=== PATIENT | female | born 1970 | race Caucasian/White ===

== ENCOUNTER → 2018-06-26 | Outpatient (CLI) | payer MEDICAID ==
--- NOTE | 2018-06-26 11:19 | XR ---
EXAMINATION TYPE: XR humerus LT DATE OF EXAM: 06/26/2018 COMPARISON: None HISTORY: Foreign body left upper extremity TECHNIQUE: 2 view left humerus FINDINGS: No acute osseous abnormality is evident. Joint spaces appear preserved. On the AP projection there is a metallic figure 8 device overlying the acromioclavicular junction. Th is appears to be more typical for a bra strap. This appears to be away from the suspected site within the mid diaphyseal region of the humerus for the suspected foreign body. The osseous structures appear intact IMPRESSION: 1. Suspicious metallic foreign body not identified in the mid posterior arm reported bruising site. 2. Normal left humerus.
== END ==
LOC: RADXRMAIN 10:30
PROVIDERS: ATTEND Nurse Practitioner Family
DX: S40.852A Superficial foreign body of left upper arm, initial encounter (principal)

== ENCOUNTER → 2018-08-27 | Outpatient (CLI) | payer MEDICAID ==
--- NOTE | 2018-08-28 11:14 | MM ---
Reason for exam: screening (asymptomatic). Last mammogram was performed 1 year and 1 month ago. History: Family history of breast cancer in paternal grandmother at age 82. Benign right mammotome panel of the right breast, June 21, 2011. Physical Findings: A clinical breast exam by your physician is recommended on an annual basis and results should be correlated with mammographic findings. MG 3D Screening Mammo W/Cad Bilateral CC and MLO view(s) were taken. Prior study comparison: July 16, 2017, bilateral MG 3d screening mammo w/cad. July 08, 2016, bilateral MG 3d diag mammo w/cad ROBBIN. The breast tissue is heterogeneously dense. This may lower the sensitivity of mammography. No significant changes when compared with prior studies. ASSESSMENT: Benign, BI-RAD 2 RECOMMENDATION: Routine screening mammogram of both breasts in 1 year.
== END | disposition home or self-care (01) ==
LOC: RADMAMWWP 13:43
PROVIDERS: ATTEND Obstetrics & Gynecology
DX: Z12.31 Encounter for screening mammogram for malignant neoplasm of breast (principal)
CPT/HCPCS: 77063; 77067

== ENCOUNTER 2018-08-30 20:46 | Emergency (ER) | payer MEDICAID, OTHER ==
[2018-08-30 20:54] VITALS: BP 145/94; PULSE 93; RESP 18; TEMP 97.6
--- NOTE | 2018-08-30 21:13 | ED ---
Upper Extremity HPI - General Chief Complaint: Extremity Injury, Upper Stated Complaint: Shoulder injury Time Seen by Provider: 08/30/18 20:49 Source: patient, RN notes reviewed, old records reviewed Mode of arrival: ambulatory Limitations: no limitations - History of Present Illness Initial Comments: Patient is a 47-year-old female who presents emergency department today with chief complaint of left shoulder and elbow pain. Patient reports that symptoms started yesterday after lifting a Patient at work. Patient states that she's had no fevers or chills, denies any chest pain shortness breath. She denies any peripheral paresthesias. Patient reports she's had history of left shoulder chronic issues after she had a work injury 8 years ago. She subsequently develop frozen shoulder syndrome at that time. She is concerned that that may occur at this time. She denies any significant decreased range of motion. She complains of pain around her elbow as well. Patient reports she took 400 mg of ibuprofen and slept. Patient states that after taking the Cipro and she still continued to have some pain. - Related Data Home Medications Medication Instructions Recorded Confirmed Albuterol Inhaler [Ventolin Hfa 2 puff INHALATION RT-Q4H PRN 07/20/14 12/17/15 Inhaler] Fenofibrate Nanocrystallized 145 mg PO DAILY 07/20/14 12/17/15 [Fenofibrate] Hydrochlorothiazide [Hydrodiuril] 50 mg PO DAILY 07/20/14 12/17/15 Ipratropium-Albuterol Nebulize 1 inhalation PO RT-Q4H PRN 07/20/14 12/17/15 [Duoneb 0.5 mg-3 mg/3 ml Soln] Montelukast [Singulair] 10 mg PO DAILY 07/20/14 12/17/15 Simvastatin [Zocor] 10 mg PO DAILY 07/20/14 12/17/15 sitaGLIPtin PHOSPHATE [Januvia] 100 mg PO DAILY 07/20/14 12/17/15 Digoxin [Lanoxin] 125 mcg PO DAILY 02/05/15 12/17/15 metFORMIN HCL [Glucophage] 1,000 mg PO BID 02/05/15 12/17/15 Aspirin EC [Ecotrin Low Dose] 162 mg PO HS 02/10/15 12/17/15 Docusate [Colace] 200 mg PO DAILY 12/17/15 12/17/15 Insulin Glargine,Hum.rec.anlog 25 units SQ HS 12/17/15 12/17/15 [Toujeo Solostar] Insulin Glulisine [Apidra Solostar] 8 unit SQ QID 12/17/15 12/17/15 Previous Rx's Medication Instructions Recorded Levalbuterol Nebulized (Conc) 1.25 mg INHALATION RT-QID #120 ml 02/11/15 [Xopenex Nebulized (Conc)] HYDROcodone/APAP 5-325MG [Guy 1 each PO Q6HR PRN #10 tab 12/17/15 5-325] Ondansetron Odt [Zofran ODT] 4 mg PO Q8HR PRN #10 tab 12/17/15 Cyclobenzaprine [Flexeril] 10 mg PO TID #12 tab 08/30/18 Ibuprofen [Motrin] 600 mg PO Q8HR PRN #20 tab 08/30/18 Allergies Allergy/AdvReac Type Severity Reaction Status Date / Time chlorpheniramine maleate Allergy Anaphylaxis Verified 08/30/18 20:54 [From Deconamine] iodine Allergy Anaphylaxis Verified 08/30/18 20:54 propranolol HCl Allergy Anaphylaxis Verified 08/30/18 20:54 [From Inderal LA] Review of Systems ROS Statement: Those systems with pertinent positive or pertinent negative responses have been documented in the HPI. ROS Other: All systems not noted in ROS Statement are negative. Past Medical History Past Medical History: Asthma, Diabetes Mellitus, Hyperlipidemia, Supraventricular Tachycardia (SVT) Additional Past Medical History / Comment(s): glaucoma, migraineas, Ovarian cysts (ruptured hemorrhagic cyst), endometriosis History of Any Multi-Drug Resistant Organisms: None Reported Past Surgical History: Adenoidectomy, Back Surgery, Cholecystectomy, Tonsillectomy, Uterine Ablation Additional Past Surgical History / Comment(s): d&c, left hip, bilateral knees, open laparotomy. Past Anesthesia/Blood Transfusion Reactions: Postoperative Nausea & Vomiting ( PONV) Past Psychological History: No Psychological Hx Reported Smoking Status: Never smoker Past Alcohol Use History: Rare Past Drug Use History: None Reported - Past Family History Mother Family Medical History: COPD, Diabetes Mellitus, Hypertension, Renal Disease Additional Family Medical History / Comment(s): chf, open heart Father Additional Family Medical History / Comment(s): renal cell carcinoma General Exam - General Exam Comments Initial Comments: 47-year-old female. Alert and oriented. Patient appears in no acute distress. Limitations: no limitations General appearance: alert, in no apparent distress Head exam: Present: atraumatic, normocephalic, normal inspection Eye exam: Present: normal appearance, PERRL, EOMI. Absent: scleral icterus, conjunctival injection, periorbital swelling ENT exam: Present: normal exam, mucous membranes moist Neck exam: Present: normal inspection Respiratory exam: Present: normal lung sounds bilaterally. Absent: respiratory distress, wheezes, rales, rhonchi, stridor Cardiovascular Exam: Present: regular rate, normal rhythm, normal heart sounds. Absent: systolic murmur, diastolic murmur, rubs, gallop, clicks Left Shoulder Exam: Present: normal inspection, full ROM, tenderness (Tenderness over the left trapezius muscle and left paraspinal cervical muscles.) Upper Arm exam: Present: normal inspection, full ROM Elbow exam: Present: normal inspection, full ROM, tenderness (Patient has tenderness over the lateral insertion of the biceps with flexion.) Forearm Wrist exam: Present: normal inspection, full ROM Hand Wrist exam: Present: normal inspection, full ROM Neuro motor exam: Present: wrist extension intact, thumb opposition intact, thumb IP flexion intact, thumb adduction intact, fingers 2-5 abduction intact Vascular: Present: normal capillary refill Back exam: Present: normal inspection Course Vital Signs 08/30/18 20:50 Temperature 97.6 F Pulse Rate 93 Respiratory 18 Rate Blood Pressure 145/94 O2 Sat by Pulse 95 Oximetry Medical Decision Making - Medical Decision Making 47-year-old female with left elbow and shoulder pain after pulling a Patient up at work. Patient reports she was holding a heavy Patient while they were trying to reposition him in bed. At the same Patient does have full range of motion of the shoulder full range motion of the elbow. She is tenderness to palpation with flexion of the elbow over the lateral biceps insertion tendon. Patient also tenderness over the trapezius. She was given IM Toradol and Norflex. Discussed at this time x-rays reviewed and negative for any acute osseous have a mallet. Says likely suffering from tendinitis as well as cervical muscle and trapezius muscle spasms due to tension. Patient was advised to continue to try medication, short prescription for muscle relaxers for the neck pain. Discussed and will not put the Patient a sling at this time as it could simply develop frozen shoulder syndrome. Discussed that she should return to emergency department if any alarming signs or symptoms occur. Disposition Clinical Impression: Shoulder pain Disposition: HOME SELF-CARE Condition: Good Instructions: Tendinitis (ED), Muscle Spasm (ED) Additional Instructions: Patient advised to follow-up with data specialist. Rest, ice the elbow and shoulder. Also warm compresses may help over the neck and back. Patient should take the medication as prescribed. Return to the emergency department if any alarming signs or symptoms occur. Prescriptions: Cyclobenzaprine [Flexeril] 10 mg PO TID #12 tab Ibuprofen [Motrin] 600 mg PO Q8HR PRN #20 tab PRN Reason: Pain Is patient prescribed a controlled substance at d/c from ED?: No Referrals: Peter Gallego MD [Primary Care Provider] - 1-2 days Chente Geronimo DO [Doctor of Osteopathic Medicine] - 1-2 days Time of Disposition: 21:52
[2018-08-30] MEDS ORDERED: KETOROLAC 60 MG/2 ML VIAL IM STA (21:17)
[2018-08-30] MEDS ORDERED: ORPHENADRINE 30 MG/ML 2 ML VIAL IM STA (21:17)
--- NOTE | 2018-08-30 21:41 | XR ---
EXAMINATION TYPE: XR shoulder complete LT DATE OF EXAM: 08/30/2018 CLINICAL HISTORY: Pain after lifting injury yesterday. TECHNIQUE: Three views of the left shoulder are obtained. COMPARISON: Left humerus x-ray June 26, 2018. FINDINGS: There is no acute fracture/dislocation evident in the left shoulder. Moderate narrowing of the right ventricular joint is redemonstrated. Glenohumeral joint is maintained. The visualized rib s are intact and unremarkable. IMPRESSION: There is no acute fracture or dislocation in the left shoulder.
--- NOTE | 2018-08-30 21:42 | XR ---
EXAMINATION TYPE: XR elbow complete LT DATE OF EXAM: 08/30/2018 CLINICAL HISTORY: Pain after lifting injury yesterday. TECHNIQUE: Frontal, lateral and oblique images of the left elbow are obtained. COMPARISON: Left humerus x-ray June 26, 2018 FINDINGS: There is no acute fracture/dislocation evident in the left elbow. No abnormal fat pad sig ns are seen. The overlying soft tissue appears unremarkable. IMPRESSION: There is no acute fracture or dislocation in the left elbow.
== END 2018-08-30 22:20 | disposition home or self-care (01) ==
LOC: EC 20:46
DX: M75.22 Bicipital tendinitis, left shoulder (principal); M62.838 Other muscle spasm; J45.909 Unspecified asthma, uncomplicated; E11.9 Type 2 diabetes mellitus without complications; E78.5 Hyperlipidemia, unspecified; Z79.82 Long term (current) use of aspirin; Z79.4 Long term (current) use of insulin; Z79.899 Other long term (current) drug therapy; Z88.8 Allergy status to other drugs, medicaments and biological substances; Z91.048 Other nonmedicinal substance allergy status
CPT/HCPCS: 99284; 96372 ×2; 73030; 73080; J2360; J1885

== ENCOUNTER → 2018-09-02 | Outpatient (CLI) | payer OTHER ==
--- NOTE | 2018-09-02 14:25 | MR ---
EXAMINATION TYPE: MR shoulder LT wo con DATE OF EXAM: 09/02/2018 COMPARISON: Radiograph 08/30/2018 HISTORY: 47-year-old female Sprain of shoulder joint, left shoulder pain TECHNIQUE: Multiplanar, multisequence imaging of the left shoulder is performed without contrast. FINDINGS: Intermediate signal within the intracapsular portion of the long head biceps tendon suggests tendinos is. The extracapsular portion remains appropriately situated along the bicipital groove. The subscapularis tendon is intact. The supraspinatus and infraspinatus tendons are intact. Mild thickening of the subacromial/subdeltoid bursa. No atrophy of the rotator cuff musculature. There is moderate degenerative joint space narrowing and marginal spurring at the acromioclavicular j oint with mild capsular edema and contact onto the underlying myotendinous junction of the supraspina tus. The glenohumeral joint is intact with a small effusion present in the superior subscapularis recess. No discrete labral tear given nonarthrographic technique and no para labral cyst. No Hill-Sachs deformity or os acromiale. Patchy red marrow is present. No suspicious bone marrow replacement. IMPRESSION: 1. Intracapsular long head biceps tendinosis. 2. Mild thickening of the subacromial/subdeltoid bursa could represent a mild bursitis. 3. Moderate AC joint OA with inferior spurring just contacting the underlying cuff. Correlate for any symptoms of subacromial impingement. 4. No rotator cuff tear.
== END | disposition home or self-care (01) ==
LOC: RADMRIMAIN 10:53
PROVIDERS: ATTEND Emergency Medicine
DX: M19.012 Primary osteoarthritis, left shoulder (principal); M67.814 Other specified disorders of tendon, left shoulder

== ENCOUNTER → 2019-01-04 | Outpatient (CLI) | payer OTHER ==
[2019-01-04 13:51] LABS: Basophils # (A) 0.1 k/uL (0-0.2); Basophils % (A) 1 %; Eosinophils # (A) 0.2 k/uL (0-0.7); Eosinophils % (A) 2 %; HCT 41.6 % (34.0-46.0); HGB 13.7 gm/dL (11.4-16.0); Lymphocytes # (A) 2.3 k/uL (1.0-4.8); Lymphocytes % (A) 23 %; MCH 27.6 pg (25.0-35.0); MCHC 32.8 g/dL (31.0-37.0); Mean Platelet Volume 6.6; Monocytes # (A) 0.5 k/uL (0-1.0); Monocytes % (A) 5 %; Neutrophils # (A) 6.7 k/uL (1.3-7.7); Neutrophils % (A) 67 %; Platelet Count 400 k/uL (150-450); RBC 4.95 m/uL (3.80-5.40); RDW 13.9 % (11.5-15.5)
== END | disposition home or self-care (01) ==
LOC: LABPAT 12:57
PROVIDERS: ATTEND Orthopaedic Surgery
DX: Z01.812 Encounter for preprocedural laboratory examination (principal); M75.42 Impingement syndrome of left shoulder
CPT/HCPCS: 36415; 80051; 85025

== ENCOUNTER → 2019-04-06 | Outpatient (CLI) | payer MEDICAID ==
[2019-04-06 09:37] LABS: Basophils # (A) 0.1 k/uL (0-0.2); Basophils % (A) 1 %; Eosinophils # (A) 0.4 k/uL (0-0.7); Eosinophils % (A) 3 %; Lymphocytes # (A) 3.5 k/uL (1.0-4.8); Lymphocytes % (A) 28 %; MCH 27.5 pg (25.0-35.0); MCHC 32.6 g/dL (31.0-37.0); MCV 84.4 fL (80.0-100.0); Mean Platelet Volume 6.3; Monocytes # (A) 0.8 k/uL (0-1.0); Monocytes % (A) 7 %; Neutrophils # (A) 7.5 k/uL (1.3-7.7); Neutrophils % (A) 60 %; Platelet Count 424 k/uL (150-450); RBC 4.74 m/uL (3.80-5.40); RDW 13.8 % (11.5-15.5); WBC 12.5 k/uL (3.8-10.6)
[2019-04-06 09:47] LABS: Potassium 3.9 mmol/L (3.5-5.1)
== END | disposition home or self-care (01) ==
LOC: LABPAT 07:53
PROVIDERS: ATTEND Orthopaedic Surgery
DX: Z01.812 Encounter for preprocedural laboratory examination (principal); M75.42 Impingement syndrome of left shoulder
CPT/HCPCS: 36415; 80051; 85025

== ENCOUNTER 2019-04-09 07:38 | Day surgery (SDC) | payer MEDICAID, OTHER ==
[2019-04-08 08:30] VITALS: BMI 33.8
--- NOTE | 2019-04-08 09:13 | HP ---
HISTORY AND PHYSICAL CHIEF COMPLAINT: Left shoulder pain. 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 She is having a difficult time with overhead activity and at night. She has tried medications, a previous injection, and therapy with only partial temporary relief. She notes the pain does limit her activities. PAST MEDICAL HISTORY: Significant for diabetes, reflux disease, irritable bowel syndrome, asthma, depression, hypercholesterolemia. PAST SURGICAL HISTORY: Significant for previous left hip surgery x2, left knee surgery, right knee surgery, right heel cord surgery, lumbar fusion with bone grafting, exploratory laparotomy, cholecystectomy and breast biopsy. CURRENT MEDICATIONS: 1. Digoxin. 2. Metformin. 3. Simvastatin. 4. Singulair. 5. Insulin. 6. Aspirin. 7. Hydrochlorothiazide. 8. Januvia. ALLERGIES: She has allergies to INDERAL, IODINE. FAMILY HISTORY: Significant for cancer and heart disease. SOCIAL HISTORY: Negative for current tobacco or alcohol use. REVIEW OF SYSTEMS: Sixteen point review of systems otherwise reviewed and is noncontributory. PHYSICAL EXAMINATION: On examination, the patient is approximately 5 feet 7 inches, 215 pounds of endomorphic habitus. HEENT exam is nonfocal. Neck is supple. On examination of her left shoulder, she is tender about the anterior subacromial space in the acromioclavicular joint. She has moderate subacromial crepitus. Active range of motion forward elevation 155 degrees, external rotation of the arm side 50 degrees, internal rotation to T12. Motor strength is 5 minus over 5 for external rotation with the arm at the side, 5 minus over 5 for abduction. Impingement test, Neer test are positive. Cross- body adduction is positive. Her distal neurovascular exam appears intact in the left upper extremity. Previous x-rays of the left shoulder show maintained humeral head to acromial distance. Previous MRI showed no definite full-thickness rotator cuff tear. IMPRESSION: 1. Left shoulder impingement. 2. Left acromioclavicular joint synovitis. RECOMMENDATIONS: I talked to the patient at length regarding her condition and treatment options. At this point, she remains quite symptomatic despite adequate conservative measures. After thorough discussion, she opts to proceed with surgery. We will plan to proceed with arthroscopic evaluation with probable subacromial decompression and distal clavicular resection and possible rotator cuff debridement. Risks and benefits were discussed at length in layman's terms. We will likely perform that as an outpatient procedure. MMODL / IJN: [id number] /
[~2019-04-09 07:38] MED LIST: DEXAMETHASONE SOD PHOSPHATE 10 MG/ML 1 ML VIAL IV ONE; KETOROLAC 30 MG/ML 1 ML VIAL IVP SCH; LACTATED RINGERS 1,000 ML IV SCH; LIDOCAINE 1% 20 ML VIAL (10MG/ML) FOR IV START INTRADERMA PRN; MORPHINE SULFATE 2 MG/ML SYRINGE IV PRN; ONDANSETRON 4 MG/2 ML VIAL IVP ONE; ONDANSETRON 4 MG/2 ML VIAL IVP PRN; SCOPOLAMINE 1.5MG/72HR PATCH TRANSDERM ONE
[2019-04-09 08:36] LABS: Glucose,Whole Blood 143 mg/dL (75-99)
[2019-04-09] MEDS ORDERED: MIDAZOLAM (PF) 2 MG/2 ML VIAL IVP ONE (08:56)
--- NOTE | 2019-04-09 09:10 | P.ANPRN ---
Procedure Note - Anesthesia - Nerve Block Performed Left Interscalene Single Date of Procedure: 04/09/19 Procedure Start Time: 08:55 Procedure Stop Time: 09:00 Location of Patient Procedure: PreOp Indication: Acute Post-Operative Pain, Analgesia, Requested by physician Sedation Type: Sedate with meaningful contact maintained Preparation: Sterile Prep Position: Supine Catheter: None Needle Types: Pajunk Needle Gauge: 21 Technique: Ultrasound Injectate: 0.5% Ropivacaine (see comment for volume) (20cc) Blood Aspirated: No Pain Paresthesia on Injection Noted: No Resistance on Injection: Normal Events: Uneventful and Well Tolerated
[2019-04-09] MEDS ORDERED: LIDOCAINE 1% INJ 10MG/ML (20 ML MDV) ONE (09:42)
[2019-04-09] MEDS ORDERED: MIDAZOLAM 2 MG/2 ML VIAL ONE (09:42)
[2019-04-09] MEDS ORDERED: PHENYLEPHRINE-0.9% NACL SYG 1 MG/10 ML SYRINGE ONE (09:42)
[2019-04-09] MEDS ORDERED: ROPIVACAINE 5 MG/ML 30 ML VIAL ONE (09:42)
[2019-04-09] MEDS ORDERED: PROPOFOL 10 MG/ML 20 ML VIAL IV ONE (09:42)
[2019-04-09] MEDS ORDERED: SUCCINYLCHOLINE CHLORIDE 100 MG/5 ML SYR IV ONE (09:42)
[2019-04-09] MEDS ORDERED: fentaNYL (PF) 50 MCG/ML 2 ML AMP ONE (09:42)
[2019-04-09] MEDS ORDERED: EPINEPHrine (PF) 1 ML in SODIUM CHLORIDE 0.9% IRRIGATIO 3,000 ML IRRIGATION ONE ×8 (10:25)
[2019-04-09] MEDS ORDERED: LACTATED RINGERS 1,000 ML IV ONE (11:05)
--- NOTE | 2019-04-09 11:11 | P.OP ---
Date of Procedure: 04/09/19 Preoperative Diagnosis: Left shoulder impingement/rotator cuff tendinitis/acromioclavicular joint synovitis Postoperative Diagnosis: Same Procedure(s) Performed: Left shoulder arthroscopic subacromial decompression/distal clavicular resection/bursectomy Anesthesia: allison SHIPLEY Surgeon: Pierre Kraft Instrument Specialist #1: Kurt North Estimated Blood Loss (ml): 10 Pathology: none sent Condition: stable Disposition: PACU Indications for Procedure: The patient is a 40-year-old female who presents with progressive left shoulder pain despite conservative measures. A discussion of the risks and benefits of operative intervention versus continued conservative measures was made with the patient. She opted to proceed. Operative risks to include infection, neurovascular injury, development of blood clots, possible incomplete resolution of symptoms, possible worsening symptoms need for subsequent procedures was discussed. Informed consent was obtained. Operative Findings: As below Description of Procedure: The patient was brought to the operating room, and after induction of general anesthesia was placed in a beachchair position. A preoperative interscalene block was placed for postoperative analgesia. I examined the left shoulder. There was no gross block to passive motion or gross glenohumeral instability. The after upper extremity was prepped and draped in normal fashion. The bony outlines the acromion, distal clavicle, and coracoid process were outlined with a skin marker. The glenohumeral joint was inflated with 50 mL of saline utilizing a spinal needle from posterior approach. A posterior portal was made through a 5 mm skin incision 1 cm medial and inferior to the posterior lateral border time. A blunt trocar was used to easily into the joint. Diagnostic arthroscopy was performed. An anterior portal was made just lateral to the coracoid process entering the joint above the subscapularis tendon. The subscapularis tendon appeared to be intact. Anterior labrum was intact. The inferior recess was inspected. The posterior labrum was intact. The intra- articular portion the biceps appeared to be intact as well as the superior labrum. An anterior portals made just lateral to the coracoid process entering the joint above the subscapularis. On inspection the rotator cuff it appeared to be intact on the articular surface. No real degenerative changes involving the glenoid or humeral head were noted. A lateral portal was made 2 centimeters inferior to the anterior lateral border of the acromion. There was significant bursal thickening that was debrided with a motorized shaver. The rotator cuff appeared intact on the bursal surface. The soft tissue on the undersurface of the acromion was debrided with a motorized shaver and electrocautery clearly defining the anterior medial and lateral borders as well as the distal clavicle. An anterior inferior acromioplasty was performed with a motorized alexandr starting anterolateral, then extending this posteriorly, then extending this medially. I converted to a flat acromion and this was verified in the posterior and lateral viewing portals. The distal clavicle was identified and the distal 4 mm r esection with a motorized bur. There was significant synovitis involving the acromioclavicular joint that was debrided with motorized shaver. The arthroscope was then removed. The portals were closed with simple 3-0 nylon sutures. A sterile dressing was applied in addition to an abductor brace. The patient was then awoken from general anesthesia and transferred to recovery room in good condition. Blood loss was estimated at 10 mL. No complications were incurred. Sponge and needle counts were correct in the case. Bruce LARA assisted and the major components of the case to include arm positioning , bony resection, and closure.
[2019-04-09 11:26] VITALS: TEMP 97.4
[2019-04-09 11:26] LABS: Glucose,Whole Blood 189 mg/dL (75-99)
[2019-04-09 12:32] VITALS: PULSE 95
[2019-04-09 12:43] VITALS: BP 128/83; RESP 18
== END 2019-04-09 13:20 | disposition home or self-care (01) ==
LOC: OR 07:38
PROVIDERS: ATTEND Orthopaedic Surgery
DX: M75.42 Impingement syndrome of left shoulder (principal); M65.812 Other synovitis and tenosynovitis, left shoulder; E11.9 Type 2 diabetes mellitus without complications; K58.9 Irritable bowel syndrome, unspecified; K21.9 Gastro-esophageal reflux disease without esophagitis; J45.909 Unspecified asthma, uncomplicated; F32.9 Major depressive disorder, single episode, unspecified; E78.00 Pure hypercholesterolemia, unspecified; Z90.49 Acquired absence of other specified parts of digestive tract; Z98.1 Arthrodesis status; Z79.82 Long term (current) use of aspirin; Z79.4 Long term (current) use of insulin; Z79.899 Other long term (current) drug therapy; Z88.8 Allergy status to other drugs, medicaments and biological substances; Z82.49 Family history of ischemic heart disease and other diseases of the circulatory system; Z80.9 Family history of malignant neoplasm, unspecified
CPT/HCPCS: 29824; 64415; 81025; J2250 ×2; J1100; J0690; J2405; J0171; J2001; J3010; J2795; J2370; J0330; J2704

== ENCOUNTER → 2019-09-28 | Outpatient (CLI) | payer MEDICAID ==
--- NOTE | 2019-09-30 13:45 | MM ---
Reason for exam: screening (asymptomatic). Last mammogram was performed 1 year and 1 month ago. History: Family history of breast cancer in paternal grandmother at age 82. Benign right mammotome panel of the right breast, June 21, 2011. Physical Findings: A clinical breast exam by your physician is recommended on an annual basis and results should be correlated with mammographic findings. MG 3D Screening Mammo W/Cad Bilateral CC and MLO view(s) were taken. Prior study comparison: August 27, 2018, bilateral MG 3d screening mammo w/cad. July 16, 2017, bilateral MG 3d screening mammo w/cad. The breast tissue is extremely dense which could obscure a lesion on mammography. Previous mammotome biopsy in the left breast. No significant changes when compared with prior studies. ASSESSMENT: Benign, BI-RAD 2 RECOMMENDATION: Routine screening mammogram of both breasts in 1 year.
== END | disposition home or self-care (01) ==
LOC: RADMAMWWP 14:04
PROVIDERS: ATTEND Obstetrics & Gynecology
DX: Z12.31 Encounter for screening mammogram for malignant neoplasm of breast (principal)
CPT/HCPCS: 77063; 77067

== ENCOUNTER 2020-03-08 10:47 | Emergency (ER) | payer MEDICAID ==
[2020-03-08] MEDS ORDERED: ACETAMINOPHEN TAB 500 MG TAB PO STA (11:19)
[2020-03-08] MEDS ORDERED: methylPREDNISolone SOD SUCCI 125 MG/2 ML VIAL IV STA (11:42)
[2020-03-08] MEDS ORDERED: FAMOTIDINE 20 MG/2 ML VIAL IV STA (11:44)
[2020-03-08] MEDS ORDERED: diphenhydrAMINE 50 MG/ML 1 ML VIAL IVP STA (11:44)
[2020-03-08 12:07] LABS: Basophils # (A) 0.1 k/uL (0-0.2); Basophils % (A) 1 %; Eosinophils # (A) 0.3 k/uL (0-0.7); Eosinophils % (A) 3 %; HCT 39.7 % (34.0-46.0); HGB 13.3 gm/dL (11.4-16.0); Lymphocytes # (A) 2.6 k/uL (1.0-4.8); Lymphocytes % (A) 28 %; MCH 28.5 pg (25.0-35.0); MCHC 33.6 g/dL (31.0-37.0); Mean Platelet Volume 6.8; Monocytes # (A) 0.5 k/uL (0-1.0); Monocytes % (A) 5 %; Neutrophils # (A) 5.5 k/uL (1.3-7.7); Neutrophils % (A) 61 %; Platelet Count 322 k/uL (150-450); RBC 4.67 m/uL (3.80-5.40); RDW 12.6 % (11.5-15.5); WBC 9.1 k/uL (3.8-10.6)
[2020-03-08 12:38] LABS: ALT 44 U/L (4-34); AST 35 U/L (14-36); African American GFR (CKD) >90 (>60 ml/min/1.73 sqM); Albumin 4.5 g/dL (3.5-5.0); Alkaline Phosphatase 73 U/L (38-126); Anion Gap 12 mmol/L; Blood Urea Nitrogen 16 mg/dL (7-17); Calcium 10.4 mg/dL (8.4-10.2); Carbon Dioxide 27 mmol/L (22-30); Chloride 101 mmol/L (98-107); Glucose 148 mg/dL (74-99); Non-African American GFR(CKD) >90 (>60 ml/min/1.73 sqM); Potassium 3.5 mmol/L (3.5-5.1); Sodium 140 mmol/L (137-145); Total Bilirubin 0.2 mg/dL (0.2-1.3); Total Protein 7.4 g/dL (6.3-8.2)
--- NOTE | 2020-03-08 12:50 | ED ---
Skin/Abscess/FB HPI - General Chief complaint: Skin/Abscess/Foreign Body Stated complaint: abscess Time Seen by Provider: 03/08/20 10:59 Source: patient Mode of arrival: ambulatory Limitations: no limitations - History of Present Illness Initial comments: Patient is a 49-year-old female presenting to the emergency department with a chief complaint of a perianal abscess. Patient states approximately 3-4 days ago she suspected a insect bite on her buttocks. Patient reports the following day she had developed a small "marble sized" perianal mass. Patient reports over the last 3 days the masses tripled in size. Patient reports it is very uncomfortable to sit and it is very painful. She denies any discharge from the region. Denies any night sweats fevers or chills. Denies any nausea or vomiting. Denies erythema or ecchymosis in the region. States she contacted Dr. Gong's office who advised her to come to the ED for further evaluation. Patient reports taking [id number] analgesics with some improvement in symptoms. Denies any history of perianal abscesses. - Related Data Home Medications Medication Instructions Recorded Confirmed Albuterol Inhaler (Mhu) [Ventolin 2 puff INHALATION RT-Q4H PRN 07/20/14 04/09/19 Hfa Inhaler (Mhu)] Fenofibrate Nanocrystallized 145 mg PO DAILY 07/20/14 04/09/19 [Fenofibrate] Hydrochlorothiazide [Hydrodiuril] 50 mg PO DAILY 07/20/14 04/09/19 Ipratropium-Albuterol Nebulize 1 inhalation PO RT-Q4H PRN 07/20/14 04/09/19 [Duoneb 0.5 mg-3 mg/3 ml Soln] Montelukast [Singulair] 10 mg PO DAILY 07/20/14 04/09/19 Simvastatin [Zocor] 10 mg PO DAILY 07/20/14 04/09/19 sitaGLIPtin PHOSPHATE [Januvia] 100 mg PO DAILY 07/20/14 04/09/19 Digoxin [Lanoxin] 125 mcg PO DAILY 02/05/15 04/09/19 metFORMIN HCL [Glucophage] 1,000 mg PO BID 02/05/15 04/09/19 Aspirin EC [Ecotrin Low Dose] 81 mg PO BID 02/10/15 04/09/19 Docusate [Colace] 100 mg PO BID //16 04/09/19 Acetaminophen Tab [Tylenol Tab] 500 - 1,000 mg PO Q6H PRN 04/08/19 04/09/19 INSULIN LISPRO (humaLOG) [humaLOG] 10 - 12 units SQ HS 04/08/19 04/09/19 Insulin Degludec [Tresiba] 90 units SQ HS 04/08/19 04/09/19 Levalbuterol Nebulized (Conc) 1.25 mg INHALATION RT-QID PRN 04/08/19 04/09/19 [Xopenex Nebulized (Conc)] Previous Rx's Medication Instructions Recorded HYDROcodone/APAP 7.5-325MG [[place] 1 each PO Q6HR PRN #28 tab 04/09/19 7.5] Amoxicillin/Potassium Clav 1 tab PO Q12HR #20 tab 03/08/20 [Augmentin 875-125 Tablet] Allergies Allergy/AdvReac Type Severity Reaction Status Date / Time chlorpheniramine maleate Allergy Anaphylaxis Verified 03/08/20 14:12 [From Deconamine] iodine Allergy Anaphylaxis Verified 03/08/20 14:12 propranolol HCl Allergy Anaphylaxis Verified 03/08/20 14:12 [From Inderal LA] Review of Systems ROS Statement: Those systems with pertinent positive or pertinent negative responses have been documented in the HPI. ROS Other: All systems not noted in ROS Statement are negative. Past Medical History Past Medical History: Asthma, Diabetes Mellitus, Hyperlipidemia, Supraventricular Tachycardia (SVT) Additional Past Medical History / Comment(s): glaucoma, migraineas, Ovarian cysts (ruptured hemorrhagic cyst), endometriosis History of Any Multi-Drug Resistant Organisms: None Reported Past Surgical History: Adenoidectomy, Back Surgery, Cholecystectomy, Tonsillectomy, Uterine Ablation Additional Past Surgical History / Comment(s): d&c, left hip, bilateral knees, open laparotomy. Past Anesthesia/Blood Transfusion Reactions: Postoperative Nausea & Vomiting (PONV) Past Psychological History: No Psychological Hx Reported Smoking Status: Never smoker Past Alcohol Use History: Rare Past Drug Use History: None Reported - Past Family History Mother Family Medical History: COPD, Diabetes Mellitus, Hypertension, Renal Disease Additional Family Medical History / Comment(s): chf, open heart Father Family Medical History: Cancer Additional Family Medical History / Comment(s): renal cell carcinoma General Exam Limitations: no limitations General appearance: alert, in no apparent distress, obese Head exam: Present: atraumatic, normocephalic, normal inspection Eye exam: Present: normal appearance, PERRL, EOMI Pupils: Present: normal accommodation ENT exam: Present: normal exam, normal oropharynx, mucous membranes moist Neck exam: Present: normal inspection, full ROM. Absent: tenderness Respiratory exam: Present: normal lung sounds bilaterally. Absent: respiratory distress, wheezes Cardiovascular Exam: Present: regular rate, normal rhythm, normal heart sounds Rectal exam: Present: mass (Look at the left lateral to the anus.), tenderness. Absent: normal inspection (Mass measuring approximately 4-5 cm in diameter. Not erythematous. No active discharge. Tender to the touch. Fluctuant mass), hemorrhoids Extremities exam: Present: normal inspection, full ROM. Absent: tenderness Back exam: Present: normal inspection, full ROM Neurological exam: Present: alert, oriented X3 Psychiatric exam: Present: normal affect, normal mood Skin exam: Present: warm, dry, intact, normal color Course Vital Signs 03/08/20 03/08/20 03/08/20 10:52 13:21 14:41 Temperature 98.1 F 98.3 F Pulse Rate 87 87 93 Respiratory 18 20 18 Rate Blood Pressure 151/94 173/85 133/84 O2 Sat by Pulse 97 97 96 Oximetry Medical Decision Making - Medical Decision Making Patient is a 49-year-old female presenting to the emergency department with a chief complaint of a perineal abscess. On exam there appears to be a 4-5 cm abscess to the inferior lateral aspect of the anus. It does not look inflammatory at this time. No signs of erythema discharge or ecchymosis. It is tender to palpation. Examination of the anus is unremarkable. No signs of hemorrhoids. CBC reveals no leukocytosis. CMP is unremarkable. CT of abdomen and pelvis reveals no signs a frail abscess identified. Incidental finding of hepatosplenomegaly and a 5.4 cm ovarian cyst versus hydrosalpinx. Patient is already set to follow-up with a general surgeon regarding the condition. Patie nt will be started on Augmentin. Case discussed with Dr. Tam is understanding and agreeable. - Lab Data Result diagrams: 03/08/20 11:49 03/08/20 11:49 Lab Results 03/08/20 03/08/20 03/08/20 Range/Units 11:49 11:49 12:01 WBC 9.1 (3.8-10.6) k/uL RBC 4.67 (3.80-5.40) m/uL Hgb 13.3 (11.4-16.0) gm/dL Hct 39.7 (34.0-46.0) % MCV 85.0 (80.0-100.0) fL MCH 28.5 (25.0-35.0) pg MCHC 33.6 (31.0-37.0) g/dL RDW 12.6 (11.5-15.5) % Plt Count 322 (150-450) k/uL Neutrophils % 61 % Lymphocytes % 28 % Monocytes % 5 % Eosinophils % 3 % Basophils % 1 % Neutrophils # 5.5 (1.3-7.7) k/uL Lymphocytes # 2.6 (1.0-4.8) k/uL Monocytes # 0.5 (0-1.0) k/uL Eosinophils # 0.3 (0-0.7) k/uL Basophils # 0.1 (0-0.2) k/uL Sodium 140 (137-145) mmol/L Potassium 3.5 (3.5-5.1) mmol/L Chloride 101 (98-107) mmol/L Carbon Dioxide 27 (22-30) mmol/L Anion Gap 12 mmol/L BUN 16 (7-17) mg/dL Creatinine 0.73 (0.52-1.04) mg/dL Est GFR (CKD-EPI)AfAm >90 (>60 ml/min/1.73 sqM) Est GFR (CKD-EPI)NonAf >90 (>60 ml/min/1.73 sqM) Glucose 148 H (74-99) mg/dL Calcium 10.4 H (8.4-10.2) mg/dL Total Bilirubin 0.2 (0.2-1.3) mg/dL AST 35 (14-36) U/L ALT 44 H (4-34) U/L Alkaline Phosphatase 73 (38-126) U/L Total Protein 7.4 (6.3-8.2) g/dL Albumin 4.5 (3.5-5.0) g/dL Urine HCG, Qual Not Detected (Not Detectd) Disposition Clinical Impression: Perianal mass Disposition: HOME SELF-CARE Condition: Stable Instructions (If sedation given, give patient instructions): Rectal Pain (ED) Additional Instructions: Follow-up with a general surgeon. Take prescribed medication as directed. Return to emergency department if symptoms worsen. Prescriptions: Amoxicillin/Potassium Clav [Augmentin 875-125 Tablet] 1 tab PO Q12HR #20 tab Is patient prescribed a controlled substance at d/c from ED?: No Referrals: Peter Gallego MD [Primary Care Provider] - 1-2 days Aminah Bates MD [REFERRING] - 1-2 days Time of Disposition: 14:09
--- NOTE | 2020-03-08 13:39 | CT ---
EXAMINATION TYPE: CT abdomen and pelvis w con DATE OF EXAM: 03/08/2020 COMPARISON: 12/17/2015 HISTORY: 49-year-old female perineal mass, suspected abscess. TECHNIQUE: Contiguous axial scanning of the abdomen and pelvis following administration of 100 ml Iso buddy 300 IV contrast. Delayed images through the kidneys and coronal/sagittal reconstructions perform ed. CT DLP: 1547.6 mGycm Automated exposure control for dose reduction was used. FINDINGS: Heart normal size without pericardial effusion. Lung bases clear without pleural effusion. Liver enlarged at 23.0 cm with diffuse low-attenuation. Portal venous system is patent. No biliary du ctal dilatation. Cholecystectomy clips. Adrenal glands, kidneys, and pancreas appear within normal limits. Spleen mildly enlarged at 14.3 cm on coronal series with a hilar splenule. No dilated small bowel, free fluid, free air. Small fatty supraumbilical midline hernia measuring 2.3 cm wide and a pinhole abdominal wall defect. Numerous scattered nonenlarged lymph nodes measuring up to 6 mm likely reactive/post inflammatory. Normal appendix. Mild stool burden. No pericolonic inflammatory change. Bladder nondistended. Uterus anteverted. Some cystic structures in the right adnexa could represent a large septated ovarian cyst measuring up to 5.4 cm. Given a slightly tubular configuration, hydrosal pinx is not excluded. However, the appearance is unchanged from 12/17/2015. No abnormal fluid collectio n in the pelvis or pelvic lymphadenopathy. Multiple right-sided pelvic phleboliths. No obvious perineal mass is identified. Note that the inferior gluteal folds are not included on this exam. Bones: Postsurgical changes at L5-S1 interbody fusion with laminectomy. IMPRESSION: 1. NO PERINEAL MASS OR ABSCESS IS IDENTIFIED. HOWEVER, NOTE THAT THE INFERIOR GLUTEAL FOLDS ARE NOT I NCLUDED ON THIS EXAM. CORRELATE TO THE LOCATION OF THE CLINICAL ABNORMALITY. 2. HEPATOMEGALY AT 23.0 CM WITH HEPATIC STEATOSIS. MILD SPLENOMEGALY AT 14.3 CM. 3. EITHER A SEPTATED RIGHT OVARIAN CYST MEASURING 5.4 CM VERSUS HYDROSALPINX, UNCHANGED FROM 12/17/2015 . NONEMERGENT FOLLOW-UP PELVIC ULTRASOUND RECOMMENDED TO FURTHER CHARACTERIZE AND DETERMINE SUBSEQUEN T FOLLOW-UP.
[2020-03-08 14:42] VITALS: BP 133/84; PULSE 93; RESP 18; TEMP 98.3
== END 2020-03-08 14:41 | disposition home or self-care (01) ==
LOC: EC 10:47
DX: K61.0 Anal abscess (principal); K62.89 Other specified diseases of anus and rectum; J45.909 Unspecified asthma, uncomplicated; E11.9 Type 2 diabetes mellitus without complications; E78.5 Hyperlipidemia, unspecified; H40.9 Unspecified glaucoma; Z79.51 Long term (current) use of inhaled steroids; Z79.82 Long term (current) use of aspirin; Z79.4 Long term (current) use of insulin; Z79.899 Other long term (current) drug therapy; Z88.8 Allergy status to other drugs, medicaments and biological substances; Z91.048 Other nonmedicinal substance allergy status; Z98.890 Other specified postprocedural states
CPT/HCPCS: 36415; 80053; 85025; 81025; 87040; 74177; 99283; 96374; 96375 ×2; J1200; J2930

== ENCOUNTER 2020-05-03 21:07 | Emergency (ER) | payer MEDICAID ==
[2020-05-03 21:12] VITALS: TEMP 98.1
[2020-05-03] MEDS ORDERED: FAMOTIDINE 20 MG TAB PO STA (21:36)
[2020-05-03] MEDS ORDERED: DEXAMETHASONE SOD PHOSPHATE 4 MG/ML 1 ML VIAL IM STA (21:41)
--- NOTE | 2020-05-03 22:08 | ED ---
Allergic Reaction HPI - General Chief complaint: Allergic Reaction Stated complaint: Bee stings Time Seen by Provider: 05/03/20 21:27 Source: patient Mode of arrival: ambulatory Limitations: no limitations - History of Present Illness Initial Comments: Patient is a 49-year-old female presenting to the emergency room a chief complaint of bee stings. Patient reports she was hit multiple times by yellow jackets. She states she took Benadryl, Tylenol and 40 mg of prednisone. Patient states she does of asthma and is concerned if she would have a an ad verse reaction. States she does not have an anaphylactic reaction to bee stings. She denies any drooling, swelling of the throat, chest pain, chest tightness or shortness of breath. States most of the bicycle located on bilateral upper extremities, right ear and on the scalp. Patient reports a painful and she was concerned because the pain was so significant. - Related Data Home Medications Medication Instructions Recorded Confirmed Albuterol Inhaler (Mhu) [Ventolin 2 puff INHALATION RT-Q4H PRN 07/20/14 04/09/19 Hfa Inhaler (Mhu)] Fenofibrate Nanocrystallized 145 mg PO DAILY 07/20/14 04/09/19 [Fenofibrate] Ipratropium-Albuterol Nebulize 1 inhalation PO RT-Q4H PRN 07/20/14 04/09/19 [Duoneb 0.5 mg-3 mg/3 ml Soln] Montelukast [Singulair] 10 mg PO DAILY 07/20/14 04/09/19 Simvastatin [Zocor] 10 mg PO DAILY 07/20/14 04/09/19 hydroCHLOROthiazide [Hydrodiuril] 50 mg PO DAILY 07/20/14 04/09/19 sitaGLIPtin PHOSPHATE [Januvia] 100 mg PO DAILY 07/20/14 04/09/19 Digoxin [Lanoxin] 125 mcg PO DAILY 02/05/15 04/09/19 metFORMIN HCL [Glucophage] 1,000 mg PO BID 02/05/15 04/09/19 Aspirin EC [Ecotrin Low Dose] 81 mg PO BID 02/10/15 04/09/19 Docusate [Colace] 100 mg PO BID 12/17/15 04/09/19 Acetaminophen Tab [Tylenol Tab] 500 - 1,000 mg PO Q6H PRN 04/08/19 04/09/19 INSULIN LISPRO (humaLOG) [humaLOG] 10 - 12 units SQ HS 04/08/19 04/09/19 Insulin Degludec [Tresiba] 90 units SQ HS 04/08/19 04/09/19 Levalbuterol Nebulized (Conc) 1.25 mg INHALATION RT-QID PRN 04/08/19 04/09/19 [Xopenex Nebulized (Conc)] Previous Rx's Medication Instructions Recorded HYDROcodone/APAP 7.5-325MG [[place] 1 each PO Q6HR PRN #28 tab 04/09/19 7.5] Amoxicillin/Potassium Clav 1 tab PO Q12HR #20 tab 03/08/20 [Augmentin 875-125 Tablet] Allergies Allergy/AdvReac Type Severity Reaction Status Date / Time chlorpheniramine maleate Allergy Anaphylaxis Verified 05/03/20 21:12 [From Deconamine] iodine Allergy Anaphylaxis Verified 05/03/20 21:12 propranolol HCl Allergy Anaphylaxis Verified 05/03/20 21:12 [From Inderal [place]] Review of Systems ROS Statement: Those systems with pertinent positive or pertinent negative responses have been documented in the HPI. ROS Other: All systems not noted in ROS Statement are negative. Past Medical History Past Medical History: Asthma, Diabetes Mellitus, Hyperlipidemia, Supraventricular Tachycardia (SVT) Additional Past Medical History / Comment(s): glaucoma, migraineas, Ovarian cysts (ruptured hemorrhagic cyst), endometriosis History of Any Multi-Drug Resistant Organisms: None Reported Past Surgical History: Adenoidectomy, Back Surgery, Cholecystectomy, Tonsillectomy, Uterine Ablation Additional Past Surgical History / Comment(s): d&c, left hip, bilateral knees, open laparotomy. Past Anesthesia/Blood Transfusion Reactions: Postoperative Nausea & Vomiting (PONV) Past Psychological History: No Psychological Hx Reported Smoking Status: Never smoker Past Alcohol Use History: Rare Past Drug Use History: None Reported - Past Family History Mother Family Medical History: COPD, Diabetes Mellitus, Hypertension, Renal Disease Additional Family Medical History / Comment(s): chf, open heart Father Family Medical History: Cancer Additional Family Medical History / Comment(s): renal cell carcinoma General Exam Limitations: no limitations General appearance: alert, in no apparent distress Head exam: Present: atraumatic, normocephalic, normal inspection Eye exam: Present: normal appearance, PERRL, EOMI Pupils: Present: normal accommodation ENT exam: Present: normal exam, normal oropharynx, mucous membranes moist Neck exam: Present: normal inspection, full ROM. Absent: tenderness Respiratory exam: Present: normal lung sounds bilaterally. Absent: respiratory distress, wheezes, rales, decreased breath sounds Cardiovascular Exam: Present: regular rate, normal rhythm, normal heart sounds Extremities exam: Present: full ROM, normal capillary refill, other (+2 ulnar and radial pulses bilateral.). Absent: normal inspection (Localized ALLERGIC reactions to bilateral upper extremities, right ear and the scalp.) Back exam: Present: normal inspection, full ROM. Absent: tenderness Neurological exam: Present: alert, oriented X3 Psychiatric exam: Present: normal affect, normal mood Skin exam: Present: warm, dry, intact, normal color, rash Course Vital Signs 05/03/20 05/03/20 21:10 23:20 Temperature 98.1 F Pulse Rate 109 H 90 Respiratory 20 18 Rate Blood Pressure 143/80 154/71 O2 Sat by Pulse 98 99 Oximetry Medical Decision Making - Medical Decision Making Patient is a 49-year-old female presenting to the emergency department with chief complaint of bee stings. On exam patient has multiple bee stings with localized ALLERGIC reactions in bilateral upper extremities, right ear and scalp. There is also one on the right lower extremity.Patient checked her blood sugar home it was 180, emergency department blood sugar was 280 only after she took 40 mg of prednisone. I gave the patient 5 miligrams of dexamethasone. There was concern for hyperglycemia. Patient was given 40 mg additional log per her request. Patient states the localized reaction to gain better. She'll be discharged with tramadol starter pack to help with the pain. Advised not to drive or operative heavy machinery when taking medication. Patient states she will continue to monitor her glucose levels throughout the night. Strict return parameters were thoroughly discussed patient was in a standing agreeable. Case discussed physician. - Lab Data Lab Results 05/03/20 Range/Units 22:27 POC Glucose (mg/dL) 281 H (75-99) mg/dL POC Glu Fruit Dryer ID Sangeeta Gamez Disposition Clinical Impression: Bee sting reaction, Insect bites and stings Disposition: ADMITTED IP TO THIS HOSP Condition: Stable Instructions (If sedation given, give patient instructions): Insect Bite or Sting (ED) Additional Instructions: Continue to monitor your blood sugar levels throughout the night. Return to emergency department if symptoms worsen. Is patient prescribed a controlled substance at d/c from ED?: No Referrals: Peter Gallego MD [Primary Care Provider] - 1-2 days Time of Disposition: 23:10
[2020-05-03 22:33] LABS: Glucose,Whole Blood 281 mg/dL (75-99)
[2020-05-03] MEDS ORDERED: INSULIN ASPART (NovoLOG) 100 UNIT/ML VIAL SQ ONE (22:37)
[2020-05-03] MEDS ORDERED: traMADol 50 MG STARTER PACK 3 TAB BTL PO STA (23:05)
[2020-05-03 23:21] VITALS: BP 154/71; PULSE 90; RESP 18
== END 2020-05-03 23:22 | disposition other institution (70) ==
LOC: EC 21:07
DX: T63.441A Toxic effect of venom of bees, accidental (unintentional), initial encounter (principal); E11.39 Type 2 diabetes mellitus with other diabetic ophthalmic complication; H42 Glaucoma in diseases classified elsewhere; J45.909 Unspecified asthma, uncomplicated; E78.5 Hyperlipidemia, unspecified; Z79.899 Other long term (current) drug therapy; Z79.84 Long term (current) use of oral hypoglycemic drugs; Z79.4 Long term (current) use of insulin; Z79.82 Long term (current) use of aspirin; Z88.8 Allergy status to other drugs, medicaments and biological substances; Z91.048 Other nonmedicinal substance allergy status
CPT/HCPCS: 36415; 93005; 99284; 96372; J1100

== ENCOUNTER 2020-10-08 08:34 | Emergency (ER) | payer MEDICAID ==
[2020-10-08 08:52] VITALS: RESP 18
[2020-10-08] MEDS ORDERED: MORPHINE SULFATE 4 MG/ML SYRINGE IV STA (09:02)
[2020-10-08] MEDS ORDERED: ONDANSETRON 4 MG/2 ML VIAL IVP STA (09:06)
[2020-10-08 09:19] LABS: Basophils # (A) 0.2 k/uL (0-0.2); Basophils % (A) 2 %; Eosinophils # (A) 0.3 k/uL (0-0.7); Eosinophils % (A) 3 %; HCT 40.3 % (34.0-46.0); HGB 13.9 gm/dL (11.4-16.0); Lymphocytes % (A) 26 %; MCH 28.4 pg (25.0-35.0); MCHC 34.4 g/dL (31.0-37.0); MCV 82.4 fL (80.0-100.0); Mean Platelet Volume 6.4; Monocytes # (A) 0.6 k/uL (0-1.0); Monocytes % (A) 5 %; Neutrophils # (A) 7.2 k/uL (1.3-7.7); Neutrophils % (A) 63 %; Platelet Count 361 k/uL (150-450); RBC 4.89 m/uL (3.80-5.40); WBC 11.5 k/uL (3.8-10.6)
[2020-10-08 09:36] LABS: Albumin 4.6 g/dL (3.5-5.0); Calcium 10.7 mg/dL (8.4-10.2); Potassium 3.6 mmol/L (3.5-5.1); Total Bilirubin 0.5 mg/dL (0.2-1.3); Total Protein 7.8 g/dL (6.3-8.2)
--- NOTE | 2020-10-08 09:59 | US ---
EXAMINATION TYPE: US transvaginal DATE OF EXAM: 10/08/2020 COMPARISON: 12/17/2015 CLINICAL HISTORY: Pain. Left pelvic pain, history of ablation and endometriosis TECHNIQUE: Transvaginal (TV) Date of LMP: 09/03 EXAM MEASUREMENTS: Uterus: 9.5 x 5.6 x 6.9 cm Endometrial Stripe: 0.6 cm Right Ovary: unable to visualize 1. Uterus: Anteverted heterogeneous, at least 2 fibroids noted, largest = 3.2 x 2.1 x 2.6cm anter iorly 2. Endometrium: appears wnl 3. Right Ovary: Obscured by overlying bowel gas 4. Left Ovary/left adnexa: large complex area = 9.5 x 7.0 x 7.9cm 5. Right Adnexa: appears wnl 6. Posterior cul-de-sac: free fluid noted IMPRESSION: 1. Large complex cystic area left adnexal region. Additional workup is recommended. 2. Uterine fibroids 3. Moderate free fluid within the pelvis.
[2020-10-08] MEDS ORDERED: HYDROmorphone 1 MG/ML 1 ML SYRINGE IVP STA (10:03)
--- NOTE | 2020-10-08 10:11 | ED ---
Abdominal Pain HPI - General Chief Complaint: Abdominal Pain Stated Complaint: LLQ pain Time Seen by Provider: 10/08/20 08:54 Source: patient, RN notes reviewed Mode of arrival: ambulatory Limitations: no limitations - History of Present Illness Initial Comments: Patient is a 50-year-old white female presented to ER post shift on the open heart for complaining of ovary cyst pain. She noted that she has had ruptured cysts in the past and this pain feels exactly the same. She'll the last time she had a cyst rupture was hemorrhagic and she spent 5 days in the hospital. She reports severe pain that is pinpoint left lower quadrant, just lateral on t he left side just above her belt line. She noted that the pain progressively got worse over her shift yesterday and she had to stay over due to not finding coverage. She tried taking several Motrin and Tylenol to help with pain to no avail. Patient appeared moderately distressed and in pain. Patient denies history of kidney stones. Patient denied any chance at due to having a stroke 4 years ago. Patient reported some lightheadedness due to pain. She denied any chest pain, dizziness, nausea, vomiting, fever, chills, fatigue, shortness of breath. - Related Data Home Medications Medication Instructions Recorded Confirmed Albuterol Inhaler (Mhu) [Ventolin 2 puff INHALATION RT-Q4H PRN 07/20/14 04/09/19 Hfa Inhaler (Mhu)] Fenofibrate Nanocrystallized 145 mg PO DAILY 07/20/14 04/09/19 [Fenofibrate] Ipratropium-Albuterol Nebulize 1 inhalation PO RT-Q4H PRN 07/20/14 04/09/19 [Duoneb 0.5 mg-3 mg/3 ml Soln] Montelukast [Singulair] 10 mg PO DAILY 07/20/14 04/09/19 Simvastatin [Zocor] 10 mg PO DAILY 07/20/14 04/09/19 hydroCHLOROthiazide [Hydrodiuril] 50 mg PO DAILY 07/20/14 04/09/19 sitaGLIPtin PHOSPHATE [Januvia] 100 mg PO DAILY 07/20/14 04/09/19 Digoxin [Lanoxin] 125 mcg PO DAILY 02/05/15 04/09/19 metFORMIN HCL [Glucophage] 1,000 mg PO BID 02/05/15 04/09/19 Aspirin EC [Ecotrin Low Dose] 81 mg PO BID 02/10/15 04/09/19 Docusate [Colace] 100 mg PO BID 12/17/15 04/09/19 Acetaminophen Tab [Tylenol Tab] 500 - 1,000 mg PO Q6H PRN 04/08/19 04/09/19 INSULIN LISPRO (humaLOG) [humaLOG] 10 - 12 units SQ HS 04/08/19 04/09/19 Insulin Degludec [Tresiba] 90 units SQ HS 04/08/19 04/09/19 Levalbuterol Nebulized (Conc) 1.25 mg INHALATION RT-QID PRN 04/08/19 04/09/19 [Xopenex Nebulized (Conc)] Previous Rx's Medication Instructions Recorded HYDROcodone/APAP 7.5-325MG [[place] 1 each PO Q6HR PRN #28 tab 04/09/19 7.5] Amoxicillin/Potassium Clav 1 tab PO Q12HR #20 tab 03/08/20 [Augmentin 875-125 Tablet] Acetaminophen-Codeine 300-30mg 1 tab PO Q6H PRN 3 Days #12 tablet 10/08/20 [Tylenol w/codeine #3] Allergies Allergy/AdvReac Type Severity Reaction Status Date / Time chlorpheniramine maleate Allergy Anaphylaxis Verified 10/08/20 12:11 [From Deconamine] iodine Allergy Anaphylaxis Verified 10/08/20 12:11 propranolol HCl Allergy Anaphylaxis Verified 10/08/20 12:11 [From Inderal LA] adhesive tape AdvReac sensitivity Verified 10/08/20 12:11 Review of Systems ROS Statement: Those systems with pertinent positive or pertinent negative responses have been documented in the HPI. ROS Other: All systems not noted in ROS Statement are negative. Past Medical History Past Medical History: Asthma, Diabetes Mellitus, Hyperlipidemia, Supraventricular Tachycardia (SVT) Additional Past Medical History / Comment(s): glaucoma, migraineas, Ovarian cysts (ruptured hemorrhagic cyst), endometriosis History of Any Multi-Drug Resistant Organisms: None Reported Past Surgical History: Adenoidectomy, Back Surgery, Cholecystectomy, Tonsillectomy, Uterine Ablation Additional Past Surgical History / Comment(s): d&c, left hip, bilateral knees, open laparotomy. Past Anesthesia/Blood Transfusion Reactions: Postoperative Nausea & Vomiting (PONV) Past Psychological History: No Psychological Hx Reported Smoking Status: Never smoker Past Alcohol Use History: Rare Past Drug Use History: None Reported - Past Family History Mother Family Medical History: COPD, Diabetes Mellitus, Hypertension, Renal Disease Additional Family Medical History / Comment(s): chf, open heart Father Family Medical History: Cancer Additional Family Medical History / Comment(s): renal cell carcinoma General Exam Limitations: no limitations General appearance: alert, in distress Head exam: Present: atraumatic, normocephalic, normal inspection Eye exam: Present: normal appearance, PERRL, EOMI. Absent: scleral icterus, conjunctival injection, periorbital swelling ENT exam: Present: normal exam, mucous membranes moist Neck exam: Present: normal inspection. Absent: tenderness, meningismus, lymphadenopathy Respiratory exam: Present: normal lung sounds bilaterally. Absent: respiratory distress, wheezes, rales, rhonchi, stridor Cardiovascular Exam: Present: regular rate, tachycardia, normal heart sounds. Absent: systolic murmur, diastolic murmur, rubs, gallop, clicks GI/Abdominal exam: Present: soft, tenderness (Left lower quadrant patient did note that some pressure help alleviate some of the pain.), normal bowel sounds. Absent: distended, guarding, rebound, rigid Extremities exam: Present: normal inspection, full ROM, normal capillary refill. Absent: tenderness, pedal edema, joint swelling, calf tenderness Neurological exam: Present: alert, oriented X3, CN II-XII intact Psychiatric exam: Present: normal affect, normal mood Skin exam: Present: warm, dry, intact, normal color. Absent: rash Course Vital Signs 10/08/20 10/08/20 08:50 11:28 Temperature 98.1 F Pulse Rate 105 H 97 Respiratory 18 18 Rate Blood Pressure 153/96 136/81 O2 Sat by Pulse 98 99 Oximetry - Reevaluation(s) Reevaluation #1: 10/08/20 10:51 Patient reevaluated and stated that she is feeling a little better but pain level still modified. She is still mild distress. Medical Decision Making - Medical Decision Making 50-year-old female complaining of ovarian cyst pain - Lab Data Result diagrams: 10/08/20 09:10 10/08/20 09:10 Lab Results 10/08/20 10/08/20 10/08/20 Range/Units 09:10 09:10 09:58 WBC 11.5 H (3.8-10.6) k/uL RBC 4.89 (3.80-5.40) m/uL Hgb 13.9 (11.4-16.0) gm/dL Hct 40.3 (34.0-46.0) % MCV 82.4 (80.0-100.0) fL MCH 28.4 (25.0-35.0) pg MCHC 34.4 (31.0-37.0) g/dL RDW 13.0 (11.5-15.5) % Plt Count 361 (150-450) k/uL MPV 6.4 Neutrophils % 63 % Lymphocytes % 26 % Monocytes % 5 % Eosinophils % 3 % Basophils % 2 % Neutrophils # 7.2 (1.3-7.7) k/uL Lymphocytes # 3.0 (1.0-4.8) k/uL Monocytes # 0.6 (0-1.0) k/uL Eosinophils # 0.3 (0-0.7) k/uL Basophils # 0.2 (0-0.2) k/uL Sodium 139 (137-145) mmol/L Potassium 3.6 (3.5-5.1) mmol/L Chloride 102 (98-107) mmol/L Carbon Dioxide 26 (22-30) mmol/L Anion Gap 11 mmol/L BUN 25 H (7-17) mg/dL Creatinine 1.29 H (0.52-1.04) mg/dL Est GFR (CKD-EPI)AfAm 56 (>60 ml/min/1.73 sqM) Est GFR (CKD-EPI)NonAf 48 (>60 ml/min/1.73 sqM) Glucose 135 H (74-99) mg/dL Calcium 10.7 H (8.4-10.2) mg/dL Total Bilirubin 0.5 (0.2-1.3) mg/dL AST 34 (14-36) U/L ALT 39 H (4-34) U/L Alkaline Phosphatase 64 (38-126) U/L Total Protein 7.8 (6.3-8.2) g/dL Albumin 4.6 (3.5-5.0) g/dL Urine Color Yellow Urine Appearance Cloudy H (Clear) Urine pH 5.5 (5.0-8.0) Ur Specific [place] 1.034 (1.001-1.035) Urine Protein 1+ H (Negative) Urine Glucose (UA) Negative (Negative) Urine Ketones Negative (Negative) Urine Blood Negative (Negative) Urine Nitrite Negative (Negative) Urine Bilirubin Negative (Negative) Urine Urobilinogen <2.0 (<2.0) mg/dL Ur Leukocyte Esterase Small H (Negative) Urine RBC 1 (0-5) /hpf Urine WBC 3 (0-5) /hpf Ur Squamous Epith Cells 1 (0-4) /hpf Hyaline Casts 33 H (0-2) /lpf Urine Mucus Rare H (None) /hpf - Radiology Data Radiology results: report reviewed, image reviewed Large complex cystic area left adnexal region. Additional workup recommended. Uterine fibroids. Moderate free fluid within the pelvis. Radiologist after looking at images again cannot confirm that fluids to the ovary, recommended CT of abdomen and pelvis with contrast. Iodine ALLERGY precautions taken. CT of abdomen and pelvis grossly normal no signs of torsion. Disposition Clinical Impression: Ruptured ovarian cyst Disposition: HOME SELF-CARE Condition: Stable Instructions (If sedation given, give patient instructions): Ruptured Ovarian Cyst (ED) Additional Instructions: Please return to the Emergency Department if symptoms worsen or any other concerns. Follow-up with primary care 1-2 days. No strenuous activity or heavy lifting for several days Follow-up with [facility]. Case discussed with Dr. Vazquez agreed safety discharge patient home. Is patient prescribed a controlled substance at d/c from ED?: No Referrals: Peter Gallego MD [Primary Care Provider] - 1-2 days Decision Time: 12:16
[2020-10-08 10:12] LABS: Appearance,Urine Cloudy (Clear); Bilirubin,Urine Negative (Negative); Blood,Urine Negative (Negative); Color,Urine Yellow; Glucose,Urine (UA) Negative (Negative); Hyaline Casts,Urine 33 /lpf (0-2); Ketones,Urine Negative (Negative); Leukocyte Esterase,Urine Small (Negative); Mucus,Urine Rare /hpf; Nitrite,Urine Negative (Negative); PH, Urine 5.5 (5.0-8.0); Protein,Urine 1+ (Negative); RBC,Urine 1 /hpf (0-5); Specific Gravity,Urine 1.034 (1.001-1.035); Squamous Epithelial Cell,Urine 1 /hpf (0-4); Urobilinogen,Urine <2.0 mg/dL (<2.0); WBC,Urine 3 /hpf (0-5)
[2020-10-08] MEDS ORDERED: FAMOTIDINE 20 MG/2 ML VIAL IV ONE (10:49)
[2020-10-08] MEDS ORDERED: diphenhydrAMINE 50 MG/ML 1 ML VIAL IVP ONE (10:49)
[2020-10-08] MEDS ORDERED: methylPREDNISolone SOD SUCCI 125 MG/2 ML VIAL IV ONE (10:49)
--- NOTE | 2020-10-08 11:56 | CT ---
EXAMINATION TYPE: CT abdomen pelvis w con DATE OF EXAM: 10/08/2020 COMPARISON: 03/08/2020 CT abdomen pelvis, ultrasound 10/08/2020 INDICATION: Left lower quadrant pain, history of ovarian cysts DLP: 1322.4 mGycm, Automated exposure control for dose reduction was used. CONTRAST: 80 mL of Isovue 300. Study performed without Oral Contrast TECHNIQUE: Axial images were obtained from above the diaphragm to the pubic rami in the axial plane a t 5 mm thick sections. Reconstructed images are reviewed on the computer in the coronal plane. FINDINGS: Limited CT sections are obtained the lung bases. The lung bases are clear. CT ABDOMEN: Liver: There is moderate fatty infiltration to the liver. No discrete masses or cysts are evident. Spleen: Normal Pancreas: Normal Adrenal glands: The adrenal glands are normal. Gallbladder: Surgically absent Kidneys: No masses are evident. No hydronephrosis is present. No cysts are present. Delayed images were obtained through the kidneys, which remain unremarkable. Aorta: Normal Inferior vena cava: Normal. CT PELVIS: Loops of bowel within the abdomen and pelvis are normal. Studies performed without oral contrast limiting bowel evaluation. Appendix: Normal as visualized. This is air-filled with a thin wall. No dilatation is evident. Some m inimal fluid within the paracolic gutter is adjacent however. Clinical management if there is any laura pected appendicitis is recommended. Urinary bladder: Decompressed with some limited evaluation. Phleboliths are within the pelvis. Genitourinary structures: Uterus contains a punctate calcification but otherwise appears unremarkable . There appear to be bilateral ovarian cysts larger on the left. No suspicious changes to suggest tor christine are radiographically evident. Clinical management would be recommended. Largest left-sided cyst identified at approximately 8 x 4.5 cm. Additional enlarged cysts are present. A small cyst is presen t on the left 2.7 cm transverse. Minimal free fluid is within the right lower quadrant paracolic gutt er. Significant free fluid within the pelvis is not evident. Report was called case discussed with Dr Guillermo Vazquez by Dr. Baeza by telephone 1150 hours 10/08/2020 Osseous structures: No suspicious lytic or sclerotic lesions. IMPRESSIONS: 1. Several large cysts on the left ovary with a smaller cyst on the right ovary. 2. Normal appendix. Small amount of fluid is adjacent within the paracolic gutter. No other secondary signs for appendicitis are evident. Clinical management of any right lower quadrant pain would be re commended. 3. Moderate fatty infiltration liver.
[2020-10-08 13:24] VITALS: BP 133/80; PULSE 98; TEMP 97.9
== END 2020-10-08 13:24 | disposition home or self-care (01) ==
LOC: EC 08:34
DX: N83.292 Other ovarian cyst, left side (principal); R00.0 Tachycardia, unspecified; J45.909 Unspecified asthma, uncomplicated; E11.9 Type 2 diabetes mellitus without complications; E78.5 Hyperlipidemia, unspecified; Z79.4 Long term (current) use of insulin; Z79.82 Long term (current) use of aspirin; Z79.899 Other long term (current) drug therapy; Z88.8 Allergy status to other drugs, medicaments and biological substances; Z91.041 Radiographic dye allergy status; Z91.048 Other nonmedicinal substance allergy status; Z86.69 Personal history of other diseases of the nervous system and sense organs; Z90.49 Acquired absence of other specified parts of digestive tract; Z90.89 Acquired absence of other organs
CPT/HCPCS: 36415; 80053; 85025; 81001; 76830; 74177; 99284; 96374; 96375 ×5; J2270; J1200; J2930; J2405; J1170; Q9967; 93976

== ENCOUNTER → 2020-10-13 | Outpatient (CLI) | payer MEDICAID ==
[2020-10-13 10:34] LABS: Basophils # (A) 0.2 k/uL (0-0.2); Basophils % (A) 1 %; Eosinophils # (A) 0.4 k/uL (0-0.7); Eosinophils % (A) 3 %; HCT 40.9 % (34.0-46.0); HGB 13.9 gm/dL (11.4-16.0); Lymphocytes # (A) 3.5 k/uL (1.0-4.8); Lymphocytes % (A) 25 %; MCH 28.4 pg (25.0-35.0); MCHC 34.1 g/dL (31.0-37.0); MCV 83.3 fL (80.0-100.0); Mean Platelet Volume 6.8; Monocytes # (A) 0.6 k/uL (0-1.0); Monocytes % (A) 4 %; Neutrophils % (A) 65 %; Platelet Count 370 k/uL (150-450); RBC 4.91 m/uL (3.80-5.40); RDW 12.9 % (11.5-15.5); WBC 13.9 k/uL (3.8-10.6)
[2020-10-13 17:35] LABS: African American GFR (CKD) 86.4 (60.0-200.0); Albumin/Globulin Ratio 2.5 (1.60-3.17); Anion Gap 12.9 mmol/L (4.00-12.00); BUN/Creat Ratio 22.22 Ratio (12.00-20.00); Calcium 10.4 mg/dL (8.7-10.3); Carbon Dioxide 27.1 mmol/L (21.6-31.8); Chol/HDL Ratio 4.61; Non-African American GFR(CKD) 74.6 (60.0-200.0); Potassium 3.5 mmol/L (3.5-5.5); Total Bilirubin 0.3 mg/dL (0.3-1.2)
[2020-10-13 17:39] LABS: T4, Free (Free Thyroxine) 1.3 ng/dL (0.80-1.80)
[2020-10-13 18:08] LABS: Cancer Antigen 125 24.5 U/mL (0.0-30.1)
[2020-10-13 19:53] LABS: Hemoglobin A1C 8.3 % (4.0-6.0)
[2020-10-14 15:42] LABS: Urine Creatinine 220.9 mg/dL
== END | disposition home or self-care (01) ==
LOC: LABWHC1 09:08
PROVIDERS: ATTEND Obstetrics & Gynecology
DX: E11.65 Type 2 diabetes mellitus with hyperglycemia (principal); D50.9 Iron deficiency anemia, unspecified; E78.2 Mixed hyperlipidemia; E03.9 Hypothyroidism, unspecified; N83.8 Other noninflammatory disorders of ovary, fallopian tube and broad ligament
CPT/HCPCS: 36415; 80053; 80061; 82043; 82570; 83036; 83721; 84439; 84443; 85025; 86304

== ENCOUNTER → 2020-11-13 | Outpatient (CLI) | payer MEDICAID ==
--- NOTE | 2020-11-14 11:24 | MM ---
Reason for exam: screening (asymptomatic). Last mammogram was performed 1 year and 2 months ago. History: Family history of breast cancer in paternal grandmother at age 82. Benign right mammotome panel of the right breast, June 21, 2011. Physical Findings: A clinical breast exam by your physician is recommended on an annual basis and results should be correlated with mammographic findings. MG 3D Screening Mammo W/Cad Bilateral CC and MLO view(s) were taken. Prior study comparison: September 28, 2019, bilateral MG 3d screening mammo w/cad. August 27, 2018, bilateral MG 3d screening mammo w/cad. The breast tissue is heterogeneously dense. This may lower the sensitivity of mammography. Previous mammotome biopsy in the right breast. There is chronic nodularity bilaterally. A 1cm oval isodense circumscribed nodule inferior right MLO view is larger but features favor a cyst. 6 month follow up recommended. ASSESSMENT: Probably benign, BI-RAD 3 RECOMMENDATION: Follow-up diagnostic mammogram of the right breast in 6 months.
== END ==
LOC: RADMAMWWP 08:37
PROVIDERS: ATTEND Obstetrics & Gynecology
DX: Z12.31 Encounter for screening mammogram for malignant neoplasm of breast (principal); Z80.3 Family history of malignant neoplasm of breast
CPT/HCPCS: 77063; 77067

== ENCOUNTER → 2020-11-20 | Outpatient (CLI) | payer MEDICAID ==
[2020-11-20 10:57] LABS: African American GFR (CKD) >90 (>60 ml/min/1.73 sqM); Blood Urea Nitrogen 17 mg/dL (7-17); Non-African American GFR(CKD) >90 (>60 ml/min/1.73 sqM)
--- NOTE | 2020-11-20 12:36 | CT ---
EXAMINATION TYPE: CT abdomen pelvis w con DATE OF EXAM: 11/20/2020 HISTORY: Pelvic mass CT DLP: 1389mGycm Automated Exposure Control for Dose Reduction was Utilized. CONTRAST: CT scan of the abdomen and pelvis is performed with oral and with IV Contrast, patient injected with 100 mL of Isovue 300. COMPARISON: CTA October 08, 2020 and older studies FINDINGS: LUNG BASES: No significant abnormality is appreciated. LIVER/GB: Cholecystectomy clips redemonstrated. Diffuse fatty infiltration of liver again seen. PANCREAS: No significant abnormality is seen. SPLEEN: Stable splenule in splenic hilum axial image 33. ADRENALS: No significant abnormality is seen. KIDNEYS: No significant abnormality is seen. BOWEL: Oral contrast to the level of splenic flexure. There is no suspicious small or large bowel dil atation. Moderate prominence of fecal material in the cecum redemonstrated.. UTERUS/ADNEXA: Anteverted uterus. Scattered bilateral pelvic phleboliths. Less prominent bilateral lo w low dense or ovoid cystic structures in the pelvis or ovaries. Left ovary has slightly hyperdense 5 .4 x 3.7 cm lesion axial image 77 that remains present on today's study. LYMPH NODES: No greater than 1cm abdominal or pelvic lymph nodes are appreciated. OSSEOUS STRUCTURES: Metallic disc spacer at L5-S1 level redemonstrated. Facet arthropathy lower lumb ar levels. OTHER: No significant additional abnormality is seen. IMPRESSION: Improving cystic lesions in the bilateral pelvis presumed ovaries. There is persistent no nsimple cyst or cystic 5.4 x 3.7 cm slightly hyperdense lesion in the left pelvis renal axial image 7 7. Suspect interval resolution of proteinaceous and/or hemorrhagic cysts bilaterally. Repeat pelvic u ltrasound can be performed to further evaluate and characterize as is more sensitive in assessing ova gianna cystic lesions.
[2020-11-20 16:48] LABS: Estradiol 30.2 pg/mL; Follicle Stimulating Hormone 18.4 mIU/mL; Luteinizing Hormone 6.3 mIU/mL
== END | disposition home or self-care (01) ==
LOC: RADCTMAIN 10:11
PROVIDERS: ATTEND Obstetrics & Gynecology
DX: N94.89 Other specified conditions associated with female genital organs and menstrual cycle (principal); Z01.812 Encounter for preprocedural laboratory examination; N91.2 Amenorrhea, unspecified; N93.8 Other specified abnormal uterine and vaginal bleeding
CPT/HCPCS: 83001; 83002; 82565; 82670; 84520; 74177; 36415; Q9967 ×2

== ENCOUNTER 2021-08-20 09:07 | Emergency (ER) | payer MEDICAID ==
[2021-08-20] MEDS ORDERED: ONDANSETRON 4 MG/2 ML VIAL IVP STA (09:54)
[2021-08-20] MEDS ORDERED: SODIUM CHLORIDE 0.9% 1,000 ML IV STA (09:54)
[2021-08-20] MEDS ORDERED: HYDROmorphone 0.5 MG/0.5 ML SYRINGE IVP STA ×2 (09:54→12:05)
--- NOTE | 2021-08-20 10:03 | ED ---
General Adult HPI - General Chief complaint: Abdominal Pain Stated complaint: lt lower abd pain Time Seen by Provider: 08/20/21 09:18 Source: patient Mode of arrival: ambulatory Limitations: no limitations - History of Present Illness Initial comments: 50-year-old female presents to the emergency room for a chief complaint of abdominal pain. Patient reports that she has a history of the ovarian cyst on the left side that is large. States it been watching it for a year now. Patient states that she does get pain with this on and off however today the pain was worse. She was supposed to follow-up this fall but did not get around to it. She called her [employer] Dr. Gong and he recommended she come into the emergency room.Patient has no other complaints at this time including shortness of breath, chest pain, headache, or visual changes. - Related Data Home Medications Medication Instructions Recorded Confirmed Fenofibrate Nanocrystallized 145 mg PO DAILY@0830 07/20/14 08/20/21 [Fenofibrate] Montelukast [Singulair] 10 mg PO DAILY@0830 07/20/14 08/20/21 Simvastatin [Zocor] 10 mg PO DAILY@0830 07/20/14 08/20/21 hydroCHLOROthiazide [Hydrodiuril] 50 mg PO DAILY@0200 07/20/14 08/20/21 sitaGLIPtin PHOSPHATE [Januvia] 100 mg PO DAILY@0200 07/20/14 08/20/21 Aspirin EC [Ecotrin Low Dose] 162 mg PO DAILY@0830 02/10/15 08/20/21 Docusate [Colace] 100 mg PO BID@0830,1600 12/17/15 08/20/21 Losartan [Cozaar] 25 mg PO DAILY@0200 10/08/20 08/20/21 metFORMIN HCL [Glucophage] 1,000 mg PO BID@0200,1600 10/08/20 08/20/21 Digoxin [Lanoxin] 250 mcg PO DAILY@0200 08/20/21 08/20/21 Insulin Degludec [Tresiba 100 units SQ HS 08/20/21 08/20/21 Flextouch U-100 Pen] Insulin Lispro [humaLOG Kwikpen] See Protocol SQ ACHS 08/20/21 08/20/21 Previous Rx's Medication Instructions Recorded Ketorolac [Toradol] 10 mg PO Q8HR PRN #12 tab 08/20/21 Ondansetron [Zofran ODT] 4 mg PO Q8HR PRN #15 tab 08/20/21 Allergies Allergy/AdvReac Type Severity Reaction Status Date / Time adhesive tape Allergy causes Verified 08/20/21 12:52 blisters per patient chlorpheniramine maleate Allergy Anaphylaxis Verified 08/20/21 12:52 [From Deconamine] iodine Allergy Anaphylaxis Verified 08/20/21 12:52 propranolol HCl Allergy Anaphylaxis Verified 08/20/21 12:52 [From Inderal LA] Review of Systems ROS Statement: Those systems with pertinent positive or pertinent negative responses have been documented in the HPI. ROS Other: All systems not noted in ROS Statement are negative. Past Medical History Past Medical History: Asthma, Diabetes Mellitus, Hyperlipidemia, Supraventricular Tachycardia (SVT) Additional Past Medical History / Comment(s): glaucoma, migraineas, Ovarian cysts (ruptured hemorrhagic cyst), endometriosis History of Any Multi-Drug Resistant Organisms: None Reported Past Surgical History: Adenoidectomy, Back Surgery, Cholecystectomy, Tonsillectomy, Uterine Ablation Additional Past Surgical History / Comment(s): d&c, left hip, bilateral knees, open laparotomy. Past Anesthesia/Blood Transfusion Reactions: Postoperative Nausea & Vomiting (PONV) Past Psychological History: No Psychological Hx Reported Smoking Status: Never smoker Past Alcohol Use History: Rare Past Drug Use History: None Reported - Past Family History Mother Family Medical History: COPD, Diabetes Mellitus, Hypertension, Renal Disease Additional Family Medical History / Comment(s): chf, open heart Father Family Medical History: Cancer Additional Family Medical History / Comment(s): renal cell carcinoma General Exam Limitations: no limitations General appearance: alert, in no apparent distress Head exam: Present: atraumatic Eye exam: Present: normal appearance, PERRL, EOMI ENT exam: Present: normal exam, mucous membranes moist Neck exam: Present: normal inspection, full ROM. Absent: tenderness, meningismus Respiratory exam: Present: normal lung sounds bilaterally. Absent: respiratory distress, wheezes Cardiovascular Exam: Present: regular rate, normal rhythm, normal heart sounds GI/Abdominal exam: Present: soft, tenderness (no upper abdominal pain, mild LLQ abdominal tenderness, no right lower abdominal tenderness), normal bowel sounds. Absent: distended Neurological exam: Present: alert Course Vital Signs 08/20/21 09:27 Temperature 99.4 F Pulse Rate 107 H Respiratory 18 Rate Blood Pressure 156/85 O2 Sat by Pulse 97 Oximetry Medical Decision Making - Medical Decision Making Vitals are stable. Patient is having left-sided abdominal pain. States this is the pain that she gets from her ovarian cyst. CBC is unremarkable. She did cano ve some vomiting which is likely why her white blood cell count was slightly elevated. CMP does show some evidence of hyperglycemia, patient does have a history of diabetes. Ultrasound shows multiple right ovarian cysts as well as leiomyomatous change of uterus. Given her pain was mostly on the left a CT was obtained. There is some increase in the cystic right adnexal mass. There is also some fluid adjacent to the appendix without other signs of appendicitis. No tenderness over her appendix. At this time patient can be discharged home to follow-up with [employer] and primary care. She will return here for any worsening symptoms. - Lab Data Result diagrams: 08/20/21 09:40 08/20/21 09:40 Lab Results 08/20/21 08/20/21 08/20/21 Range/Units 09:40 09:40 09:40 WBC 11.2 H (3.8-10.6) k/uL RBC 4.48 (3.80-5.40) m/uL Hgb 12.7 (11.4-16.0) gm/dL Hct 37.0 (34.0-46.0) % MCV 82.5 (80.0-100.0) fL MCH 28.4 (25.0-35.0) pg MCHC 34.5 (31.0-37.0) g/dL RDW 12.6 (11.5-15.5) % Plt Count 353 (150-450) k/uL MPV 7.1 Neutrophils % 77 % Lymphocytes % 15 % Monocytes % 4 % Eosinophils % 2 % Basophils % 1 % Neutrophils # 8.6 H (1.3-7.7) k/uL Lymphocytes # 1.6 (1.0-4.8) k/uL Monocytes # 0.5 (0-1.0) k/uL Eosinophils # 0.3 (0-0.7) k/uL Basophils # 0.1 (0-0.2) k/uL Sodium 138 (137-145) mmol/L Potassium 3.8 (3.5-5.1) mmol/L Chloride 101 (98-107) mmol/L Carbon Dioxide 23 (22-30) mmol/L Anion Gap 14 mmol/L BUN 17 (7-17) mg/dL Creatinine 0.77 (0.52-1.04) mg/dL Est GFR (CKD-EPI)AfAm >90 (>60 ml/min/1.73 sqM) Est GFR (CKD-EPI)NonAf >90 (>60 ml/min/1.73 sqM) Glucose 239 H (74-99) mg/dL Plasma Lactic Acid Chemo (0.7-2.0) mmol/L Calcium 10.4 H (8.4-10.2) mg/dL Total Bilirubin 0.5 (0.2-1.3) mg/dL AST 40 H (14-36) U/L ALT 55 H (4-34) U/L Alkaline Phosphatase 97 (38-126) U/L Total Protein 7.7 (6.3-8.2) g/dL Albumin 4.5 (3.5-5.0) g/dL Amylase 50 (30-110) U/L Lipase 118 (23-300) U/L Urine Color Yellow Urine Appearance Cloudy H (Clear) Urine pH 7.5 (5.0-8.0) Ur Specific [place] 1.026 (1.001-1.035) Urine Protein Trace H (Negative) Urine Glucose (UA) 2+ H (Negative) Urine Ketones Negative (Negative) Urine Blood Negative (Negative) Urine Nitrite Negative (Negative) Urine Bilirubin Negative (Negative) Urine Urobilinogen <2.0 (<2.0) mg/dL Ur Leukocyte Esterase Small H (Negative) Urine RBC 5 (0-5) /hpf Urine WBC 10 H (0-5) /hpf Ur Squamous Epith Cells 6 H (0-4) /hpf Urine Bacteria Rare H (None) /hpf 08/20/21 Range/Units 09:40 WBC (3.8-10.6) k/uL RBC (3.80-5.40) m/uL Hgb (11.4-16.0) gm/dL Hct (34.0-46.0) % MCV (80.0-100.0) fL MCH (25.0-35.0) pg MCHC (31.0-37.0) g/dL RDW (11.5-15.5) % Plt Count (150-450) k/uL MPV Neutrophils % % Lymphocytes % % Monocytes % % Eosinophils % % Basophils % % Neutrophils # (1.3-7.7) k/uL Lymphocytes # (1.0-4.8) k/uL Monocytes # (0-1.0) k/uL Eosinophils # (0-0.7) k/uL Basophils # (0-0.2) k/uL Sodium (137-145) mmol/L Potassium (3.5-5.1) mmol/L Chloride (98-107) mmol/L Carbon Dioxide (22-30) mmol/L Anion Gap mmol/L BUN (7-17) mg/dL Creatinine (0.52-1.04) mg/dL Est GFR (CKD-EPI)AfAm (>60 ml/min/1.73 sqM) Est GFR (CKD-EPI)NonAf (>60 ml/min/1.73 sqM) Glucose (74-99) mg/dL Plasma Lactic Acid Chemo 1.8 (0.7-2.0) mmol/L Calcium (8.4-10.2) mg/dL Total Bilirubin (0.2-1.3) mg/dL AST (14-36) U/L ALT (4-34) U/L Alkaline Phosphatase (38-126) U/L Total Protein (6.3-8.2) g/dL Albumin (3.5-5.0) g/dL Amylase (30-110) U/L Lipase (23-300) U/L Urine Color Urine Appearance (Clear) Urine pH (5.0-8.0) Ur Specific [place] (1.001-1.035) Urine Protein (Negative) Urine Glucose (UA) (Negative) Urine Ketones (Negative) Urine Blood (Negative) Urine Nitrite (Negative) Urine Bilirubin (Negative) Urine Urobilinogen (<2.0) mg/dL Ur Leukocyte Esterase (Negative) Urine RBC (0-5) /hpf Urine WBC (0-5) /hpf Ur Squamous Epith Cells (0-4) /hpf Urine Bacteria (None) /hpf Disposition Clinical Impression: Abdominal pain, Ovarian cystic mass Disposition: HOME SELF-CARE Condition: Good Instructions (If sedation given, give patient instructions): Abdominal Pain (ED) Additional Instructions: Please follow up with primary care and [employer]. Return to the emergency room for any worsening symptoms. Prescriptions: Ketorolac [Toradol] 10 mg PO Q8HR PRN #12 tab PRN Reason: Pain Ondansetron [Zofran ODT] 4 mg PO Q8HR PRN #15 tab PRN Reason: Nausea Is patient prescribed a controlled substance at d/c from ED?: No Referrals: Peter Gallego MD [Primary Care Provider] - 1-2 days Time of Disposition: 14:02
[2021-08-20 10:04] LABS: Basophils # (A) 0.1 k/uL (0-0.2); Basophils % (A) 1 %; Eosinophils # (A) 0.3 k/uL (0-0.7); Eosinophils % (A) 2 %; HGB 12.7 gm/dL (11.4-16.0); Lymphocytes # (A) 1.6 k/uL (1.0-4.8); Lymphocytes % (A) 15 %; MCH 28.4 pg (25.0-35.0); MCHC 34.5 g/dL (31.0-37.0); MCV 82.5 fL (80.0-100.0); Mean Platelet Volume 7.1; Monocytes # (A) 0.5 k/uL (0-1.0); Monocytes % (A) 4 %; Neutrophils # (A) 8.6 k/uL (1.3-7.7); Neutrophils % (A) 77 %; Platelet Count 353 k/uL (150-450); RBC 4.48 m/uL (3.80-5.40); RDW 12.6 % (11.5-15.5); WBC 11.2 k/uL (3.8-10.6)
[2021-08-20 10:20] LABS: ALT 55 U/L (4-34); AST 40 U/L (14-36); African American GFR (CKD) >90 (>60 ml/min/1.73 sqM); Albumin 4.5 g/dL (3.5-5.0); Alkaline Phosphatase 97 U/L (38-126); Amylase 50 U/L (30-110); Anion Gap 14 mmol/L; Blood Urea Nitrogen 17 mg/dL (7-17); Calcium 10.4 mg/dL (8.4-10.2); Carbon Dioxide 23 mmol/L (22-30); Chloride 101 mmol/L (98-107); Glucose 239 mg/dL (74-99); Lipase 118 U/L (23-300); Non-African American GFR(CKD) >90 (>60 ml/min/1.73 sqM); Potassium 3.8 mmol/L (3.5-5.1); Sodium 138 mmol/L (137-145); Total Bilirubin 0.5 mg/dL (0.2-1.3); Total Protein 7.7 g/dL (6.3-8.2)
[2021-08-20 10:33] LABS: Appearance,Urine Cloudy (Clear); Bacteria,Urine Rare /hpf; Bilirubin,Urine Negative (Negative); Blood,Urine Negative (Negative); Color,Urine Yellow; Glucose,Urine (UA) 2+ (Negative); Ketones,Urine Negative (Negative); Leukocyte Esterase,Urine Small (Negative); Nitrite,Urine Negative (Negative); PH, Urine 7.5 (5.0-8.0); Protein,Urine Trace (Negative); RBC,Urine 5 /hpf (0-5); Specific Gravity,Urine 1.026 (1.001-1.035); Squamous Epithelial Cell,Urine 6 /hpf (0-4); Urobilinogen,Urine <2.0 mg/dL (<2.0); WBC,Urine 10 /hpf (0-5)
--- NOTE | 2021-08-20 11:36 | US ---
EXAMINATION TYPE: US pelvic complete DATE OF EXAM: 08/20/2021 COMPARISON: US transvaginal 10/08/2020 CLINICAL HISTORY: cyst LLQ. LLQ pain and tenderness. Hx of ovarian cysts, D&C, ablation. TECHNIQUE: . Transabdominal sonographic images of the pelvis were acquired. Transvaginal sonographi c images were medically necessary to better assess the following anatomy: Date of LMP: Patient states not having a period for 4-5 years. EXAM MEASUREMENTS: Uterus: 8.1 x 4.8 x 6.7 cm Endometrial Stripe: 0.22 cm 1. Uterus: Anteverted Multiple anechoic foci noted within the cervix. Hypoechoic focus seen left u terine fundus 2.2 x 2.4 x 1.9 cm. 2. Endometrium: Not well delineated. 3. Right Ovary: Probable right ovary seen with multiple anechoic areas seen in the right adnexa; lar gest area 2.6 x 2.0 x 3.0 cm. 4. Left Ovary: Obscured by overlying bowel gas Spectral, color and waveform doppler imaging shows good arterial and venous flow within the ovaries ; there is no evidence for ovarian torsion. 5. Bilateral Adnexa: Imaged; left ovary not seen. 6. Posterior cul-de-sac: wnl IMPRESSION: 1. Leiomyomatous change of the uterus. 2. Multiple right ovarian cysts suspected.
[2021-08-20] MEDS ORDERED: methylPREDNISolone SOD SUCCI 125 MG/2 ML VIAL IV STA (11:42)
[2021-08-20] MEDS ORDERED: FAMOTIDINE 20 MG/2 ML VIAL IV STA (11:42)
[2021-08-20] MEDS ORDERED: diphenhydrAMINE 50 MG/ML 1 ML VIAL IVP STA (11:42)
--- NOTE | 2021-08-20 13:17 | CT ---
EXAMINATION TYPE: CT abdomen pelvis w con DATE OF EXAM: 08/20/2021 COMPARISON: CT 11/20/2020 and ultrasound 08/20/2021 HISTORY: LLQ pain CT DLP: 1488.7 mGycm Automated exposure control for dose reduction was used. TECHNIQUE: Helical acquisition of images from the lung bases through the pelvis have been completed. CONTRAST: Performed without Oral Contrast and with IV Contrast, patient injected with 100 mL of Isovue 300. FINDINGS: Anterior abdominal wall hernia contains fat, axial image #48 LUNG BASES: No significant abnormality is appreciated. AORTA: No significant abnormality is appreciated. LIVER/GB: Liver shows low attenuation likely due to hepatic steatosis. Liver is enlarged measuring gr eater than 23 cm in cephalad to caudal dimension, the patient is post cholecystectomy PANCREAS: No significant abnormality is seen. SPLEEN: Enlarged measuring slightly greater than 14 cm in cephalad to caudal dimension ADRENALS: No significant abnormality is seen. KIDNEYS: No significant abnormality is seen. REPRODUCTIVE ORGANS: Probable multilocular cystic right adnexal mass is present measuring approximate ly 3 cm in AP dimension by 4.8 cm in cephalad to caudal dimension by 3.2 cm in transverse dimension. Probable nabothian cysts noted. There is a somewhat bulky appearance of the appendix. BOWEL: There is some fluid along the region adjacent to the appendix, axial image #62 and 63, no darlene dent appendiceal thickening however, no other abnormality of the periappendiceal fat to suggest appen dicitis. Small bowel show some areas of wall thickening. FREE AIR: No Free Air visible. ASCITES: None visible. PELVIC ADENOPATHY: None visualized. RETROPERITONEAL ADENOPATHY: No Retroperitoneal Adenopathy visible. URINARY BLADDER: No significant abnormality is seen. OSSEOUS STRUCTURES: Degenerative disc changes are noted in the visualized spine, postop change noted the lumbosacral junction IMPRESSION: THERE HAS BEEN SOME INCREASE IN SIZE IN THE CYSTIC RIGHT ADNEXAL MASS, CONSIDER CYSTIC CHANGE SUCH A CYSTADENOMA OR POSSIBLY ENDOMETRIOSIS. THERE IS SOME FLUID ADJACENT TO THE APPENDIX IS DESCRIBED W ITHOUT OTHER EVIDENT CHANGES OF APPENDICITIS. FINDINGS CONSISTENT WITH FIBROID UTERUS, CONSIDER ENTER ITIS. HEPATOSPLENOMEGALY, HEPATIC STEATOSIS, POSTOP CHANGE.
[2021-08-20] MEDS ORDERED: KETOROLAC 30 MG/ML 1 ML VIAL IVP STA (14:00)
[2021-08-20 14:27] VITALS: BP 134/78; PULSE 77; RESP 16; TEMP 98.2
== END 2021-08-20 14:27 | disposition home or self-care (01) ==
LOC: EC 09:07
DX: N83.201 Unspecified ovarian cyst, right side (principal); J45.909 Unspecified asthma, uncomplicated; E11.9 Type 2 diabetes mellitus without complications; E78.5 Hyperlipidemia, unspecified; Z79.82 Long term (current) use of aspirin; Z79.84 Long term (current) use of oral hypoglycemic drugs; Z79.4 Long term (current) use of insulin; Z88.1 Allergy status to other antibiotic agents; Z90.49 Acquired absence of other specified parts of digestive tract
CPT/HCPCS: 99284; 96374; 96375 ×5; 96361; 36415; 80053; 82150; 83605; 83690; 85025; 81001; 76830; 74177; J1200; J2930; J2405; J1885; J1170; Q9967; 76856

== ENCOUNTER 2021-09-13 06:03 | Day surgery (SDC) | payer MEDICAID ==
[2021-09-11 15:09] VITALS: BMI 33.5
[~2021-09-13 06:03] MED LIST changes: -DEXAMETHASONE SOD PHOSPHATE 10 MG/ML 1 ML VIAL IV ONE; -KETOROLAC 30 MG/ML 1 ML VIAL IVP SCH; -LIDOCAINE 1% 20 ML VIAL (10MG/ML) FOR IV START INTRADERMA PRN; -MORPHINE SULFATE 2 MG/ML SYRINGE IV PRN; -ONDANSETRON 4 MG/2 ML VIAL IVP ONE; -ONDANSETRON 4 MG/2 ML VIAL IVP PRN; -SCOPOLAMINE 1.5MG/72HR PATCH TRANSDERM ONE
[2021-09-13] MEDS ORDERED: ONDANSETRON 4 MG/2 ML VIAL ONE (06:38)
[2021-09-13 06:42] VITALS: TEMP 97.2
[2021-09-13] MEDS ORDERED: ONDANSETRON 4 MG/2 ML VIAL IVP ONE (06:45)
[2021-09-13 06:49] LABS: Glucose,Whole Blood 166 mg/dL (75-99)
[2021-09-13] MEDS ORDERED: PROPOFOL 10 MG/ML 20 ML VIAL IV ONE (07:05)
--- NOTE | 2021-09-13 07:22 | P.PCN ---
Date of Procedure: 09/13/21 Procedure(s) Performed: BRIEF HISTORY: Patient is a 50-year-old pleasant male scheduled for an elective colonoscopy as a part of screening for colorectal neoplasia. PROCEDURE PERFORMED: Colonoscopy. PREOPERATIVE DIAGNOSIS: Screening for colon cancer. IV sedation per Anesthesia. PROCEDURE: After informed consent was obtained, the patient, was brought into the endoscopy unit. IV sedation was administered by Anesthesia under continuous monitoring. Digital rectal examination was normal. Initially the Olympus CF-160 flexible video colonoscope was then inserted in the rectum, gradually advanced into the cecum without any difficulty. Careful examination was performed as the scope was gradually being withdrawn. Ileocecal valve and the appendiceal orifice were visualized and appeared normal. Prep was excellent. Mucosa of the cecum, ascending colon, transverse colon, descending colon, sigmoid colon, and rectum appeared normal. Retroflexion was performed in the rectum and no lesions were seen. The patient tolerated the procedure well. IMPRESSION: Normal-appearing colon from rectum to cecum with no evidence of colorectal neoplasia. RECOMMENDATIONS: Findings of this examination were discussed with the patient as well his family. She was advised to have a repeat screening colonoscopy in 10 years..
[2021-09-13 08:03] VITALS: BP 151/90; PULSE 81; RESP 14
== END 2021-09-13 08:11 | disposition home or self-care (01) ==
LOC: ORWHC2ENDO 06:03
PROVIDERS: ATTEND Internal Medicine Gastroenterology
DX: Z12.11 Encounter for screening for malignant neoplasm of colon (principal)
CPT/HCPCS: 81025; J2405; J2704; G0121

== ENCOUNTER → 2021-12-14 | Outpatient (CLI) | payer MEDICAID ==
--- NOTE | 2021-12-17 09:53 | MM ---
Reason for exam: additional evaluation requested from prior study. Last mammogram was performed 1 year and 1 month ago. History: Family history of breast cancer in paternal grandmother at age 82. Benign right mammotome panel of the right breast, June 21, 2011. Physical Findings: A clinical breast exam by your physician is recommended on an annual basis and results should be correlated with mammographic findings. MG 3D Diag Mammo W/Cad ROBBIN Bilateral CC and MLO view(s) were taken. Prior study comparison: November 13, 2020, bilateral MG 3d screening mammo w/cad. September 28, 2019, bilateral MG 3d screening mammo w/cad. August 27, 2018, bilateral MG 3d screening mammo w/cad. July 16, 2017, bilateral MG 3d screening mammo w/cad. The breast tissue is heterogeneously dense. This may lower the sensitivity of mammography. Previous mammotome biopsy in the right breast. There is chronic nodularity bilaterally. No significant changes when compared with prior studies. ASSESSMENT: Benign, BI-RAD 2 RECOMMENDATION: Routine screening mammogram of both breasts in 1 year.
== END | disposition home or self-care (01) ==
LOC: RADMAMWWP 13:56
PROVIDERS: ATTEND Obstetrics & Gynecology
DX: R92.8 Other abnormal and inconclusive findings on diagnostic imaging of breast (principal); Z80.3 Family history of malignant neoplasm of breast
CPT/HCPCS: 77062; 77066

== ENCOUNTER → 2022-02-07 | Outpatient (CLI) | payer MEDICAID ==
--- NOTE | 2022-02-07 16:32 | CT ---
EXAMINATION TYPE: CT sinus wo con DATE OF EXAM: 02/07/2022 INDICATION: Sinus congestion CT DLP: 416.5 mGy.cm Automated Exposure Control for Dose Reduction was Utilized. TECHNIQUE AND CONTRAST: CT scan of the paranasal sinuses without IV contrast administration. COMPARISON: None available FINDINGS: Deviated bony nasal septum convex to the right side. Asymmetrically smaller right middle turbinate. U nremarkable left middle turbinate and inferior turbinates. No significant mucosal thickening of the n jarad fossa bilaterally. Patent infundibulum bilaterally. Clear ostiomeatal complexes. A polyp/retention cyst is seen within t he right maxillary sinus measuring 2 x 2.5 x 2.4 cm. Minimal mucosal thickening of the alveolar reces s of the left maxillary sinus. Suspected polyp/retention cyst versus a small mucocele in the left posterior ethmoid air cells measur ing 14 mm. Otherwise clear remainder of the ethmoid air cells, frontal sinus and sphenoid sinus. Shaikh nt sphenoethmoidal recesses. Clear visualized mastoid air cells. Unremarkable visualized portion of the brain and orbits. IMPRESSION: 2.5 cm polyp/retention cyst in the right maxillary sinus. Mild mucosal thickening of the left maxillary sinus. Small polyp/retention cyst versus a small mucocele in the left posterior ethmoid air cells as describ ed above. Unremarkable remainder of the paranasal sinuses.
== END | disposition home or self-care (01) ==
LOC: RADCTMAIN 12:12
PROVIDERS: ATTEND Otolaryngology
DX: J34.1 Cyst and mucocele of nose and nasal sinus (principal); J34.89 Other specified disorders of nose and nasal sinuses; J34.2 Deviated nasal septum
CPT/HCPCS: 70486

== ENCOUNTER → 2022-04-30 | Outpatient (CLI) | payer MEDICAID ==
[2022-04-30 14:39] LABS: Basophils # (A) 0.07 X 10*3/uL (0.00-0.10); Basophils % (A) 0.7 %; Eosinophils # (A) 0.32 X 10*3/uL (0.04-0.35); Eosinophils % (A) 3.1 %; HCT 39.9 % (37.2-46.3); HGB 12.7 g/dL (12.0-15.0); Immature Grans, Automated 0.7 %; Lymphocytes # (A) 2.17 X 10*3/uL (0.90-5.00); Lymphocytes % (A) 20.8 %; MCH 27.8 pg (27.0-32.0); MCHC 31.8 g/dL (32.0-37.0); MCV 87.3 fL (80.0-97.0); Mean Platelet Volume 9.6 fL (9.5-12.2); Monocytes # (A) 0.76 X 10*3/uL (0.20-1.00); Monocytes % (A) 7.3 %; NRBC Per 100 WBC 0 /100 WBCS (0.0-0.0); Neutrophils # (A) 7.06 X 10*3/uL (1.80-7.70); Neutrophils % (A) 67.4 %; Platelet Count 369 X 10*3/uL (140-440); RBC 4.57 X 10*6/uL (4.10-5.20); RDW 13.1 % (11.5-14.5); WBC 10.45 X 10*3/uL (4.50-10.00)
[2022-04-30 14:57] LABS: ALT 42 U/L (8-44); AST 38 U/L (13-35); African American GFR (CKD) 103.1 (60.0-200.0); Albumin 4.5 g/dL (3.8-4.9); Albumin/Globulin Ratio 1.48 (1.60-3.17); Alkaline Phosphatase 57 U/L (41-126); BUN/Creat Ratio 19.79 Ratio (12.00-20.00); Blood Urea Nitrogen 15.3 mg/dL (9.0-27.0); Calcium 9.9 mg/dL (8.7-10.3); Carbon Dioxide 24.1 mmol/L (20.0-27.5); Chloride 103 mmol/L (96-109); Chol/HDL Ratio 4.11 Ratio; Glucose 127 mg/dL (70-110); Potassium 3.8 mmol/L (3.5-5.5); Sodium 141 mmol/L (135-145); Total Protein 7.5 g/dL (6.2-8.2)
== END | disposition home or self-care (01) ==
LOC: LABWHC1 10:02
PROVIDERS: ATTEND Internal Medicine Geriatric Medicine
DX: Z00.00 Encounter for general adult medical examination without abnormal findings (principal); E11.65 Type 2 diabetes mellitus with hyperglycemia; E03.9 Hypothyroidism, unspecified
CPT/HCPCS: 36415; 80053; 80061; 82043; 82306; 82570; 83036; 84439; 84443; 85025

== ENCOUNTER → 2022-07-13 | Outpatient (CLI) | payer MEDICAID ==
[2022-07-13 23:07] LABS: ALT 45 U/L (8-44); AST 35 U/L (13-35); African American GFR (CKD) 98.9 (60.0-200.0); Albumin 4.5 g/dL (3.8-4.9); Albumin/Globulin Ratio 1.61 (1.60-3.17); Alkaline Phosphatase 50 U/L (41-126); BUN/Creat Ratio 18.38 Ratio (12.00-20.00); Blood Urea Nitrogen 14.7 mg/dL (9.0-27.0); Calcium 10.1 mg/dL (8.7-10.3); Carbon Dioxide 25.2 mmol/L (20.0-27.5); Chloride 101 mmol/L (96-109); Chol/HDL Ratio 4.32 Ratio; Globulin 2.8 g/dL (1.6-3.3); Glucose 110 mg/dL (70-110); LDL Cholesterol,Calculated 104.7 mg/dL (0.0-131.0); Non-African American GFR(CKD) 85.4 (60.0-200.0); Potassium 3.8 mmol/L (3.5-5.5); Sodium 137 mmol/L (135-145); Total Protein 7.3 g/dL (6.2-8.2)
== END | disposition home or self-care (01) ==
LOC: LABWHC1 11:36
PROVIDERS: ATTEND Podiatrist
DX: E11.65 Type 2 diabetes mellitus with hyperglycemia (principal); E78.00 Pure hypercholesterolemia, unspecified; M79.672 Pain in left foot; M20.12 Hallux valgus (acquired), left foot
CPT/HCPCS: 36415; 80053; 80061; 82043; 82570; 83036

== ENCOUNTER 2022-07-26 09:12 | Day surgery (SDC) | payer MEDICAID ==
[2022-07-24 15:44] VITALS: BMI 32.8
[~2022-07-26 09:12] MED LIST changes: +DEXAMETHASONE SOD PHOSPHATE 4 MG/ML 1 ML VIAL IV ONE; +HYDROmorphone 0.5 MG/0.5 ML SYRINGE IVP PRN; +MIDAZOLAM 2 MG/2 ML VIAL IV PRN; +ONDANSETRON 4 MG/2 ML VIAL IVP ONE; +Pre Op ABX Message 1 EACH MISC MISCELLANE ONE; +SCOPOLAMINE 1 MG/72 HR PATCH TRANSDERM ONE
[2022-07-26 09:42] LABS: Glucose,Whole Blood 161 mg/dL (70-110)
[2022-07-26] MEDS ORDERED: LACTATED RINGERS 1,000 ML IV ONE (09:46)
--- NOTE | 2022-07-26 11:10 | P.ANPRN ---
Procedure Note - Anesthesia - Nerve Block Performed Left Popliteal Single Time Out Performed: Yes Date of Procedure: 07/26/22 Procedure Start Time: 10:30 Procedure Stop Time: 10:35 Location of Patient: PreOp Indication: Acute Post-Operative Pain, Requested by Surgeon Sedation Type: Sedate with meaningful contact maintained Preparation: Sterile Prep Position: Right Lateral Needle Types: Pajunk Needle Gauge: 21 Ultrasound used to visualize needle placement: Yes Ultrasound used to observe medication spread: Yes Resistance on Injection: Normal Image Stored and Saved: Yes Events: Uneventful and Well Tolerated (Ropivacaine 0.5% and 25 mL plus dexamethasone 4 mg)
--- NOTE | 2022-07-26 11:11 | P.ANPRN ---
Procedure Note - Anesthesia - Nerve Block Performed Left Adductor Canal Single Time Out Performed: Yes Date of Procedure: 07/26/22 Procedure Start Time: 10:36 Procedure Stop Time: 10:39 Location of Patient: PreOp Indication: Acute Post-Operative Pain, Requested by Surgeon Sedation Type: Sedate with meaningful contact maintained Preparation: Sterile Prep Position: Supine Needle Types: Pajunk Needle Gauge: 21 Ultrasound used to visualize needle placement: Yes Ultrasound used to observe medication spread: Yes Blood Aspirated: No Pain Paresthesia on Injection Noted: No Resistance on Injection: Normal Image Stored and Saved: Yes Events: Uneventful and Well Tolerated (Ropivacaine 0.5% 20 mL dexamethasone 4 mg)
[2022-07-26] MEDS ORDERED: MIDAZOLAM 2 MG/2 ML VIAL ONE (11:12)
[2022-07-26] MEDS ORDERED: PHENYLEPHRINE-0.9% NACL SYG 1,000 MCG/10 ML SYRINGE ONE (11:12)
[2022-07-26] MEDS ORDERED: DEXAMETHASONE SOD PHOSPHATE 4 MG/ML 1 ML VIAL ONE (11:12)
[2022-07-26] MEDS ORDERED: LIDOCAINE 2% INJ 20 MG/ML (2 ML VIAL) ONE (11:12)
[2022-07-26] MEDS ORDERED: ROPIVACAINE 5 MG/ML 30 ML VIAL ONE (11:12)
[2022-07-26] MEDS ORDERED: fentaNYL (PF) 50 MCG/ML 2 ML AMP ONE (11:12)
[2022-07-26] MEDS ORDERED: PROPOFOL 10 MG/ML 20 ML VIAL IV ONE (11:12)
[2022-07-26] MEDS ORDERED: SUCCINYLCHOLINE CHLORIDE 200 MG/10 ML VIAL IV ONE (11:12)
[2022-07-26] MEDS ORDERED: SODIUM CHLORIDE 0.9% 100 ML with ceFAZolin 2,000 MG IV ONE ×2 (11:38)
[2022-07-26] MEDS ORDERED: ceFAZolin 1,000 MG in SODIUM CHLORIDE 0.9% 1,000 ML IRRIGATION ONE (11:48)
--- NOTE | 2022-07-26 12:45 | P.OP ---
Date of Procedure: 07/26/22 Preoperative Diagnosis: Hallux valgus left foot Postoperative Diagnosis: Same Procedure(s) Performed: Lapidus bunionectomy left foot Implants: Lapiplasty plates and screws Anesthesia: VIOLETTA Surgeon: Arnoldo Gustafson Estimated Blood Loss (ml): 3 Pathology: none sent Condition: stable Disposition: PACU Description of Procedure: Prior going to the OR, anesthesia administered a nerve block on the left lower extremity. The patient was brought into the operative room and placed on table in the supine position. Timeout was taken to confirm correct patient identifiers, correct procedure, and correct site of surgery. When all staff in the room were in agreement with the timeout the patient was induced placed under general anesthesia. A well-padded tourniquet was placed on the ankle. The foot was then prepped and draped in usual manner. The foot was exsanguinated and the tourniquet inflated 250 mmHg. Attention was directed over the medial aspect of the first metatarsal phalangeal joint where a linear incision was made between the neurovascular structures. The incision was deepened down to the subcutaneous layer careful to identify, avoid, and retract any neurovascular structures and cauterize any bleeding vessels. Dissection was then carried down to the joint capsule where 2 semi- elliptical converging incisions were made along the medial aspect of the first metatarsal phalangeal joint capsule. The interposing piece of capsule was removed from the surgical field and the capsule reflected from medial aspect of first metatarsal head. The sesamoid apparatus was distracted plantarly in the lateral sesamoid collateral ligament was transected and a lateral capsulotomy performed. Then attention was directed to the dorsal aspect of the foot over the first tarsometatarsal joint. A linear incision was made medial to the extensor hallucis longus tendon with the center of the incision over the first tarsometatarsal joint. The incision was deepened down to the subcutaneous tissue careful to identify, avoid, and retract any neurovascular structures and cauterize any bleeding vessels. Blunt dissection was then carried down to the joint capsule which was incised medial to the extensor hallucis longus tendon area and subperiosteal dissection was performed to reflect the soft tissue away from the joint. An osteotome was used to free the soft tissue from around the joint surfaces to help mobilize the frontal plane correction. A guidewire and placed through the base of the first metatarsal from medial to lateral. This is was used as a joystick for the frontal plane rotation correction. The small fulcrum was placed at the base of the first metatarsal, the joint seeker was also placed at the first tarsometatarsal joint as far lateral as possible. And then the reduction clamp was applied around the first metatarsal and lateral to the second metatarsal. While holding the frontal plane correction the reduction clamp was reduced to close the intermetatarsal angle. Once the amount of correction was acceptable under fluoroscopy, a wire was placed through the reduction clamp to lock the correction in place. The cutting guide was then placed over the joint seeker then held in place with 2 straight pins and then one angled pin so it did not slide dorsally. The bone cuts were then made through the cutting jig. Cutting jig was removed, leaving the [address], as was the fulcrum. The compression/distraction device was then placed over the remaining wires and then opened to allow access to the cut surfaces of bone. Both cut surfaces were removed fully with no remaining pieces. The wound was then irrigated thoroughly with antibiotic saline. Then a 2.0 mm drill bit was used to aggressively fenestrate the conjoining surfaces of the arthrodesis site. The fulcrum was reinserted at the lateral base of the first metatarsal . Then the distraction device was reversed for compression and while holding the great toe dorsiflexed the arthrodesis site was compressed fully. Fluoroscopy was used to check the alignment which showed full compression at the arthrodesis site with maintained correction of the intermetatarsal angle and anatomic alignment of the sesamoids. Threaded olive wire was then inserted across the arthrodesis site for temporary fixation. The medial plate was applied first it was aligned under fluoroscopy and then temporarily fixated. The 2 screw holes closest to the arthrodesis site were filled with the compression/locking screws until they were fully seated. The outer 2 holes were done with straight locking screws. The dorsal straight plate was then positioned under fluoroscopy until correct and then temporarily fixated. The 2 holes closest to the arthrodesis site were filled with the compression/locking screw and the outer holes with the straight locking screws. All extraneous instrumentation was removed and then a final fluoroscopic imaging showed full correction of the intermetatarsal angle, proper placement of hardware, no gapping at the arthrodesis, and the sesamoids anatomically aligned. All wounds were thoroughly irrigated with antibiotic saline. Capsular closure was done with 0 Vicryl in both incisions. All incisions were closed subcutaneously with 4-0 Monocryl. The large dorsal and medial incisions were closed with 3-0 Stratafix in a running subcuticular manner for skin. Dermal glue was applied to all the incisions and allowed to dry. Steri-Strips are then placed across incision and covered with an Arthrex jumpstart dressing. A bulky dry dressings applied to foot. The tourniquet was released capillary refill return to all digits on the foot. The patient then placed in a well-padded, well molded posterior mold/sugar tong splint. The foot was held in neutral position as it dried. Once dry, the patient was reversed from general anesthesia and taken recovery with vital signs stable.
[2022-07-26 12:57] VITALS: RESP 16; TEMP 97.5
[2022-07-26 14:08] VITALS: BP 114/71; PULSE 89
== END 2022-07-26 14:44 | disposition home or self-care (01) ==
LOC: OR 09:12
PROVIDERS: ATTEND Podiatrist
DX: M20.12 Hallux valgus (acquired), left foot (principal); G89.18 Other acute postprocedural pain; I10 Essential (primary) hypertension; E11.9 Type 2 diabetes mellitus without complications; J45.909 Unspecified asthma, uncomplicated; E78.5 Hyperlipidemia, unspecified
CPT/HCPCS: 64447; 64445; 76942; 28297; C1713; J2250; J0330; J1100; J2405; J0690; J3010; J2795; J2370; J2704; J2001

== ENCOUNTER → 2022-12-06 | Outpatient (CLI) | payer MEDICAID ==
[2022-12-06 18:49] LABS: Basophils # (A) 0.06 X 10*3/uL (0.00-0.10); Basophils % (A) 0.7 %; Eosinophils # (A) 0.18 X 10*3/uL (0.04-0.35); Eosinophils % (A) 2.1 %; HCT 41.9 % (37.2-46.3); HGB 13.6 g/dL (12.0-15.0); Immature Grans, Automated 0.5 %; Lymphocytes # (A) 2.07 X 10*3/uL (0.90-5.00); Lymphocytes % (A) 24.2 %; MCH 27.9 pg (27.0-32.0); MCHC 32.5 g/dL (32.0-37.0); MCV 85.9 fL (80.0-97.0); Mean Platelet Volume 9.2 fL (9.5-12.2); Monocytes # (A) 0.76 X 10*3/uL (0.20-1.00); Monocytes % (A) 8.9 %; NRBC Per 100 WBC 0 /100 WBCS (0.0-0.0); Neutrophils # (A) 5.46 X 10*3/uL (1.80-7.70); Neutrophils % (A) 63.6 %; Platelet Count 344 X 10*3/uL (140-440); RBC 4.88 X 10*6/uL (4.10-5.20); RDW 12.7 % (11.5-14.5); WBC 8.57 X 10*3/uL (4.50-10.00)
[2022-12-06 19:00] LABS: ALT 61 U/L (8-44); AST 41 U/L (13-35); Albumin 4.7 g/dL (3.8-4.9); Albumin/Globulin Ratio 1.78 (1.60-3.17); Alkaline Phosphatase 61 U/L (41-126); BUN/Creat Ratio 20.64 Ratio (12.00-20.00); Blood Urea Nitrogen 15.5 mg/dL (9.0-27.0); Calcium 10.3 mg/dL (8.7-10.3); Chloride 102 mmol/L (96-109); Globulin 2.7 g/dL (1.6-3.3); Glucose 127 mg/dL (70-110); Non-African American GFR(CKD) 91.5 (60.0-200.0); Potassium 3.9 mmol/L (3.5-5.5); Sodium 141 mmol/L (135-145); Total Protein 7.4 g/dL (6.2-8.2)
[2022-12-06 19:01] LABS: Chol/HDL Ratio 4.22 Ratio; LDL Cholesterol,Calculated 104.2 mg/dL (0.0-131.0)
== END | disposition home or self-care (01) ==
LOC: LABWHC1 12:09
PROVIDERS: ATTEND Nurse Practitioner Family
DX: Z00.00 Encounter for general adult medical examination without abnormal findings (principal); E11.65 Type 2 diabetes mellitus with hyperglycemia; E03.9 Hypothyroidism, unspecified
CPT/HCPCS: 36415; 80053; 80061; 82043; 82570; 83036; 84439; 84443; 85025

== ENCOUNTER → 2022-12-18 | Outpatient (CLI) | payer MEDICAID ==
--- NOTE | 2022-12-19 18:23 | MM ---
Reason for Exam: Screening (asymptomatic). Last screening mammogram was performed 12 month(s) ago. Patient History: Menarche at age 12. First Full-Term at age 28. Postmenopausal. 06/21/2011, Benign Core Biopsy on the right side. Paternal grandmother had breast cancer, age 82. Risk Values: Maia 5 year model risk: 1.4%. NCI Lifetime model risk: 11.2%. Prior Study Comparison: 09/28/2019 Bilateral Screening Mammogram, [facility]. 11/13/2020 Bilateral Screening Mammogram, [facility]. 12/14/2021 Bilateral Diagnostic Mammogram, [facility]. Tissue Density: The breast tissue is heterogeneously dense. This may lower the sensitivity of mammography. Findings: Analyzed By CAD. Chronic nodularity medial aspect of both breasts. Microclip right breast from prior biopsy. There is no suspicious group of microcalcifications or new suspicious mass in either breast. Overall Assessment: Benign, BI-RAD 2 Management: Screening Mammogram of both breasts in 1 year. 1. Patient should continue monthly self breast exams. 2. A clinical breast exam by your physician is recommended on an annual basis. 3. This exam should not preclude additional follow-up of suspicious palpable abnormalities. Electronically signed and approved by: Lexus Lagunas M.D. Radiologist
== END | disposition home or self-care (01) ==
LOC: RADMAMWWP 09:00
PROVIDERS: ATTEND Obstetrics & Gynecology
DX: Z12.31 Encounter for screening mammogram for malignant neoplasm of breast (principal); N95.1 Menopausal and female climacteric states; Z80.3 Family history of malignant neoplasm of breast
CPT/HCPCS: 77063; 77067

== ENCOUNTER 2023-01-03 08:24 | Day surgery (SDC) | payer MEDICAID ==
[2022-12-31 09:16] VITALS: BMI 34.0
[~2023-01-03 08:24] MED LIST changes: -HYDROmorphone 0.5 MG/0.5 ML SYRINGE IVP PRN
[2023-01-03 09:09] LABS: Glucose,Whole Blood 158 mg/dL (70-110)
[2023-01-03] MEDS ORDERED: LIDOCAINE 4% LTA KIT (4 ML) TOPICAL ONE (10:15)
[2023-01-03] MEDS ORDERED: MIDAZOLAM 2 MG/2 ML VIAL ONE (10:15)
[2023-01-03] MEDS ORDERED: SUCCINYLCHOLINE CHLORIDE 200 MG/10 ML VIAL IV ONE (10:15)
[2023-01-03] MEDS ORDERED: ROCURONIUM 10 MG/ML (5 ML VIAL) IV ONE (10:15)
[2023-01-03] MEDS ORDERED: PROPOFOL 10 MG/ML 20 ML VIAL IV ONE (10:15)
[2023-01-03] MEDS ORDERED: HYDROmorphone (PF) 1 MG/ML ONE (10:15)
[2023-01-03] MEDS ORDERED: LIDOCAINE 2% INJ 20 MG/ML (2 ML VIAL) ONE (10:15)
[2023-01-03] MEDS ORDERED: fentaNYL (PF) 50 MCG/ML 2 ML AMP ONE (10:15)
[2023-01-03] MEDS ORDERED: methylPREDNISolone ACETATE 40 MG/ML 1 ML VIAL MISCELLANE ONE ×2 (10:16→10:58)
[2023-01-03] MEDS ORDERED: BUPIVACAINE (PF) 0.25% 30 ML VIAL SQ ONE ×2 (10:16→10:33)
[2023-01-03] MEDS ORDERED: ceFAZolin 1,000 MG in SODIUM CHLORIDE 0.9% 1,000 ML IRRIGATION ONE (10:20)
[2023-01-03] MEDS ORDERED: SODIUM CHLORIDE 0.9% 100 ML with ceFAZolin 2,000 MG IV ONE ×2 (10:20)
[2023-01-03 11:30] VITALS: TEMP 97.7
[2023-01-03] MEDS ORDERED: ALBUTEROL NEBULIZED 2.5 MG/3 ML INHALATION ONE ×2 (11:56→12:27)
--- NOTE | 2023-01-03 12:24 | P.OP ---
Date of Procedure: 01/03/23 Preoperative Diagnosis: 1. Painful retained hardware left foot 2. Scarring of the first metatarsal phalangeal joint left foot Postoperative Diagnosis: 1. Same 2. Same Procedure(s) Performed: 1. Removal deep hardware left foot 2. Open arthrotomy first metatarsal phalangeal joint left foot Implants: None Anesthesia: VIOLETTA Surgeon: Arnoldo Gustafson Estimated Blood Loss (ml): 1 Pathology: none sent Condition: stable Disposition: PACU Description of Procedure: The patient was brought into the operating room and placed on table supine position. Timeout was taken to confirm correct patient identifiers, correct laterally of surgery, and correct procedure. When all staff in the room were in agreement with timeout, the patient was induced and placed under general anesthesia. A well-padded tourniquet was placed the left ankle and then 20 mL of 0.25% Marcaine was injected as a left ankle block. The left foot was then prepped and draped usual manner. The left foot was exsanguinated and the tourniquet inflated to 250 mmHg. Attention directed over the dorsal forefoot over the previous incision. The incision was followed and deepened down to the saphenous tissue careful to identify, avoid, and retract any neurovascular structures and cauterize any bleeding vessels. Blunt dissection was then carried down to the periosteum which was severely thickened overlying the hardware. The measurement of the tissue was 4-5 mm. That was incised and reflected off the hardware got continued thickening of the deep tissue was noted medially also. Both plates were fully visible and identified as were the screws. The screws were engaged the reverse removed intact without competition. Both plates were easily removed intact without complication. The area was palpated to make sure there wasn't any bony overgrowth over the hardware however none was found. The wound is flushed with antibiotic saline. Deep closure was done with 2-0 Vicryl. Subcu closure done for Monocryl. And skin closure done with 3-0 Stratafix in a running subcuticular manner. Attention directed of the first metatarsal phalangeal joint where an attempt was to manually release the adhesions in the plantar surface of the joint. It was determined that we are unable to do it manually therefore the decision for open arthrotomy was made. A small incision was made on the dorsal medial aspect of the joint between the neurovascular structures and the long extensor tendon. The incision was deepened down to the subcutaneous tissue careful to identify, avoid, and retract any neurovascular structures and cauterize any bleeding vessels. Blunt dissection was continued down to the capsule. The capsule was incised medial to the long extensor tendon and reflected slightly to allow passage of an instrument to release the scar tissue. An elevator was inserted around the joint and the scar tissue released on the plantar surface of the joint. Then the joint range of motion was tested and was noted that dorsiflexion was increased compared to preoperative findings. The wound is thoroughly irrigated with sterile saline. The capsule was closed with 2-0 Vicryl. Then 1 mL of Depo-Medrol 40 mg/mL was injected directly into the joint. Subcutaneous closure was done with 4-0 Monocryl and skin closure done with 3-0 Stratafix in a running subcuticular manner. Dermal glue was placed over all the incisions. Then Steri-Strips are placed across incision. An Arthrex jumpstart dressing and a dry sterile dressing applied to left foot. The tourniquet was released and capillary refill return to all digits on the left foot. The patient tolerated above procedure and anesthesia well. Anesthesia was reversed and she was taken recovery with vital signs stable
[2023-01-03] MEDS ORDERED: methylPREDNISolone SOD SUCCI 125 MG/2 ML VIAL IVP ONE (12:27)
[2023-01-03] MEDS: HYDROmorphone 0.5 MG/0.5 ML SYRINGE IVP PRN ×2 (12:48→14:03)
--- NOTE | 2023-01-03 14:12 | XR ---
EXAMINATION TYPE: XR chest 1V DATE OF EXAM: 01/03/2023 COMPARISON: 01/21/2022 INDICATION: Cough postop TECHNIQUE: Single frontal view of the chest is obtained. FINDINGS: The heart size is normal. The pulmonary vasculature is normal. The lungs are clear. IMPRESSION: 1. No acute pulmonary process.
[2023-01-03 15:26] VITALS: BP 121/72; PULSE 103; RESP 16
== END 2023-01-03 15:47 | disposition home or self-care (01) ==
LOC: OR 08:24
PROVIDERS: ATTEND Podiatrist
DX: T84.84XA Pain due to internal orthopedic prosthetic devices, implants and grafts, initial encounter (principal); L90.5 Scar conditions and fibrosis of skin; E78.5 Hyperlipidemia, unspecified; J45.909 Unspecified asthma, uncomplicated; E11.9 Type 2 diabetes mellitus without complications; Z88.5 Allergy status to narcotic agent; Z88.8 Allergy status to other drugs, medicaments and biological substances; Z79.899 Other long term (current) drug therapy; Z79.84 Long term (current) use of oral hypoglycemic drugs
CPT/HCPCS: 20680; 28022; 81025; 71045; J2250; J0330; J1030; J1100; J2930; J2405; J0690; J3010; J1170 ×2; J2704; J2001

== ENCOUNTER → 2023-06-23 | Outpatient (CLI) | payer MEDICAID ==
[2023-06-23 15:32] LABS: Basophils # (A) 0.08 X 10*3/uL (0.00-0.10); Basophils % (A) 0.9 %; Eosinophils # (A) 0.23 X 10*3/uL (0.04-0.35); Eosinophils % (A) 2.7 %; HCT 40.7 % (37.2-46.3); MCH 27.9 pg (27.0-32.0); MCHC 31.9 d/dL (32.0-37.0); MCV 87.3 FL (80.0-97.0); Mean Platelet Volume 9.5 FL (9.5-12.2); Monocytes # (A) 0.64 X 10*3/uL (0.20-1.00); Monocytes % (A) 7.5 %; NRBC Per 100 WBC 0 X 10*3/uL (0.00-0.01); Neutrophils # (A) 5.23 X 10*3/uL (1.80-7.70); Neutrophils % (A) 61.4 %; Platelet Count 356 X 10*3/uL (140-440); RBC 4.66 X 10*6/uL (4.10-5.20); RDW 12.7 % (11.5-14.5); WBC 8.52 X 10*3/uL (4.50-10.00)
[2023-06-23 16:04] LABS: ALT 48 U/L (8-44); AST 32 U/L (13-35); Albumin 4.6 d/dL (3.8-4.9); Albumin/Globulin Ratio 1.92 Ratio (1.60-3.17); Alkaline Phosphatase 58 U/L (41-126); BUN/Creat Ratio 18.25 Ratio (12.00-20.00); Blood Urea Nitrogen 14.6 mg/dL (9.0-27.0); Calcium 10.1 mg/dL (8.7-10.3); Carbon Dioxide 25.8 mmol/L (21.6-31.8); Chloride 103 mmol/L (96-109); Chol/HDL Ratio 4.21 Ratio; Globulin 2.4 d/dL (1.6-3.3); Glucose 116 mg/dL (70-110); LDL Cholesterol,Calculated 76.8 mg/dL (0.0-131.0); Potassium 3.9 mmol/L (3.5-5.5); Sodium 142 mmol/L (135-145); Total Bilirubin 0.2 mg/dL (0.3-1.2)
[2023-06-23 16:05] LABS: T4, Free (Free Thyroxine) 1.31 ng/dL (0.80-1.80)
== END | disposition home or self-care (01) ==
LOC: LABWHC1 08:27
PROVIDERS: ATTEND Nurse Practitioner Family
DX: E07.9 Disorder of thyroid, unspecified (principal); E11.65 Type 2 diabetes mellitus with hyperglycemia
CPT/HCPCS: 36415; 80053; 80061; 83036; 84439; 84443; 85025

== ENCOUNTER → 2023-09-12 | Outpatient (CLI) | payer MEDICAID ==
[2023-09-13 02:47] LABS: ALT 31 U/L (8-44); AST 24 U/L (13-35); Albumin 4.6 g/dL (3.8-4.9); Albumin/Globulin Ratio 1.77 Ratio (1.60-3.17); Alkaline Phosphatase 58 U/L (41-126); BUN/Creat Ratio 20.12 Ratio (12.00-20.00); Blood Urea Nitrogen 16.1 mg/dL (9.0-27.0); Calcium 10.5 mg/dL (8.7-10.3); Carbon Dioxide 25.8 mmol/L (21.6-31.8); Chloride 105 mmol/L (96-109); Chol/HDL Ratio 3.93 Ratio; Globulin 2.6 g/dL (1.6-3.3); Glucose 109 mg/dL (70-110); LDL Cholesterol,Calculated 103.9 mg/dL (0.0-131.0); Potassium 4.1 mmol/L (3.5-5.5); Sodium 143 mmol/L (135-145); Total Bilirubin <0.2 mg/dL (0.3-1.2); Total Protein 7.2 g/dL (6.2-8.2)
[2023-09-13 02:50] LABS: Eosinophils # (A) 0.14 X 10*3/uL (0.04-0.35); Eosinophils % (A) 1.4 %; HCT 42.9 % (37.2-46.3); HGB 13.1 g/dL (12.0-15.0); Lymphocytes # (A) 2.69 X 10*3/uL (0.90-5.00); Lymphocytes % (A) 26.6 %; MCHC 30.5 g/dL (32.0-37.0); MCV 88.5 FL (80.0-97.0); Mean Platelet Volume 9.2 FL (9.5-12.2); Monocytes # (A) 0.67 X 10*3/uL (0.20-1.00); Monocytes % (A) 6.6 %; NRBC Per 100 WBC 0 X 10*3/uL (0.00-0.01); Neutrophils # (A) 6.48 X 10*3/uL (1.80-7.70); Neutrophils % (A) 64.1 %; Platelet Count 427 X 10*3/uL (140-440); RBC 4.85 X 10*6/uL (4.10-5.20); RDW 13.1 % (11.5-14.5); WBC 10.11 X 10*3/uL (4.50-10.00)
== END | disposition home or self-care (01) ==
LOC: LABWHC1 11:32
PROVIDERS: ATTEND Internal Medicine Geriatric Medicine
DX: E11.65 Type 2 diabetes mellitus with hyperglycemia (principal)
CPT/HCPCS: 36415; 80053; 80061; 83036; 84443; 85025

== ENCOUNTER 2023-09-30 18:40 | Emergency (ER) | payer MEDICAID ==
[2023-09-30] MEDS ORDERED: methylPREDNISolone SOD SUCCI 125 MG/2 ML VIAL IV ONE (19:19)
[2023-09-30] MEDS ORDERED: diphenhydrAMINE 50 MG/ML 1 ML VIAL IVP STA (19:19)
[2023-09-30] MEDS ORDERED: FAMOTIDINE 20 MG/2 ML VIAL IV STA (19:20)
[2023-09-30] MEDS ORDERED: ONDANSETRON 4 MG/2 ML VIAL IVP STA (19:22)
[2023-09-30] MEDS ORDERED: HYDROmorphone 0.5 MG/0.5 ML SYRINGE IVP STA (19:22)
--- NOTE | 2023-09-30 19:22 | ED ---
Abdominal Pain HPI - General Chief Complaint: Abdominal Pain Stated Complaint: Right lower abd pain Time Seen by Provider: 09/30/23 19:21 Source: patient Mode of arrival: ambulatory Limitations: no limitations - History of Present Illness Initial Comments: 52-year-old female presenting with chief complaint of abdominal pain. Patient has been having lower abdominal pain today which has now localized to the right lower quadrant. She admits to nausea and vomiting. Patient has history of ovarian cysts, states that this pain does not feel similar in character to her cysts and her sister normally on the left side exclusively. No fevers or chill s. No history of appendectomy. She did have diarrhea today. - Related Data Home Medications Medication Instructions Recorded Confirmed Fenofibrate Nanocrystallized 145 mg PO DAILY@0830 07/20/14 01/03/23 [Fenofibrate] Montelukast [Singulair] 10 mg PO QAM 07/20/14 01/03/23 Simvastatin [Zocor] 10 mg PO DAILY 07/20/14 12/31/22 hydroCHLOROthiazide [Hydrodiuril] 50 mg PO DAILY 07/20/14 01/03/23 sitaGLIPtin PHOSPHATE [Januvia] 100 mg PO DAILY 07/20/14 01/03/23 Aspirin EC [Ecotrin Low Dose] 162 mg PO DAILY@0830 02/10/15 12/31/22 Docusate [Colace] 100 mg PO BID 12/17/15 01/03/23 Losartan [Cozaar] 50 mg PO HS 10/08/20 01/03/23 metFORMIN HCL [Glucophage] 1,000 mg PO BID 10/08/20 01/03/23 Digoxin [Lanoxin] 250 mcg PO DAILY@2100 08/20/21 01/03/23 Insulin Degludec [Tresiba 100 units SQ 2200 08/20/21 01/03/23 Flextouch U-100 Pen] Insulin Lispro [humaLOG Kwikpen] 15 unit SQ W/BRKFST 08/20/21 01/03/23 Acetaminophen Tab [Tylenol Tab] 500 - 1,000 mg PO Q6H PRN 07/24/22 01/03/23 Cholecalciferol [Vitamin D3 (25 50 mcg PO DAILY 07/24/22 12/31/22 Mcg = 1000 Iu)] Insulin Lispro [humaLOG Kwikpen] 15 unit SQ W/LUNCH 07/24/22 01/03/23 Insulin Lispro [humaLOG Kwikpen] 25 unit SQ W/SUPPER 07/24/22 01/03/23 Ipratropium Nebulized [Atrovent 0.5 mg INHALATION Q6HR PRN 07/24/22 01/03/23 Nebulized 0.2 MG/ML] Levalbuterol Nebulized [Xopenex 1.25 mg INHALATION TID PRN 07/24/22 01/03/23 Nebulized] Semaglutide [Ozempic] 0.5 mg SQ Q3D 07/24/22 01/03/23 Gabapentin [Neurontin] 300 mg PO BID 12/31/22 01/03/23 Previous Rx's Medication Instructions Recorded HYDROcodone/APAP 7.5-325MG [[place] 1 tab PO Q6HR PRN #30 tab 01/03/23 7.5-325] Allergies Allergy/AdvReac Type Severity Reaction Status Date / Time adhesive tape Allergy causes Verified 09/30/23 19:04 blisters per patient,"paper tape is ok sparingly" chlorpheniramine maleate Allergy Anaphylaxis Verified 09/30/23 19:04 [From Deconamine] iodine Allergy Anaphylaxis Verified 09/30/23 19:04 propranolol HCl Allergy Anaphylaxis Verified 09/30/23 19:04 [From Inderal LA] Review of Systems ROS Statement: Those systems with pertinent positive or pertinent negative responses have been documented in the HPI. ROS Other: All systems not noted in ROS Statement are negative. Past Medical History Past Medical History: Asthma, Diabetes Mellitus, Hyperlipidemia, Hypertension, Supraventricular Tachycardia (SVT) Additional Past Medical History / Comment(s): bunnions left foot,glaucoma, migraines, Ovarian cysts (ruptured hemorrhagic cyst), endometriosis History of Any Multi-Drug Resistant Organisms: None Reported Past Surgical History: Adenoidectomy, Back Surgery, Cholecystectomy, Orthopedic Surgery, Tonsillectomy, Uterine Ablation Additional Past Surgical History / Comment(s): d&c, left hip x2 & bilateral knee OR x5, open laparotomy,left shoulder arthroscopy,l5-s1 fusion w/ bone graft,rt heel spur removed,bunnionectomy left foot w/ hardware Past Anesthesia/Blood Transfusion Reactions: Postoperative Nausea & Vomiting (PONV) Additional Past Anesthesia/Blood Transfusion Reaction / Comment(s): no hx blood transfusion Past Psychological History: No Psychological Hx Reported Smoking Status: Never smoker Past Alcohol Use History: Rare Past Drug Use History: None Reported - Past Family History Mother Family Medical History: COPD, CVA/TIA, Diabetes Mellitus, Hypertension, Renal Disease Additional Family Medical History / Comment(s): chf, open heart, with sepsis Father Family Medical History: Cancer Additional Family Medical History / Comment(s): renal cell carcinoma General Exam Limitations: no limitations General appearance: alert, in no apparent distress Head exam: Present: atraumatic, normocephalic Eye exam: Present: normal appearance, EOMI Neck exam: Present: normal inspection Respiratory exam: Present: normal lung sounds bilaterally. Absent: respiratory distress, wheezes, rales, rhonchi, stridor Cardiovascular Exam: Present: normal rhythm, tachycardia, normal heart sounds. Absent: systolic murmur, diastolic murmur, rubs, gallop, clicks GI/Abdominal exam: Present: soft, tenderness (McBurney's point), guarding, rebound. Absent: distended, rigid Neurological exam: Present: alert, oriented X3 Psychiatric exam: Present: normal affect, normal mood Skin exam: Present: warm, dry Course Vital Signs 09/30/23 09/30/23 18:58 21:57 Temperature 96.7 F L 98.4 F Pulse Rate 105 H 98 Respiratory 18 20 Rate Blood Pressure 143/83 143/81 O2 Sat by Pulse 97 97 Oximetry Medical Decision Making - Medical Decision Making Was pt. sent in by a medical professional or institution (, PA, TEA PLANTATION WORKER, urgent care, hospital, or fci...) When possible be specific @ -No Did you speak to anyone other than the patient for history (EMS, parent, family, police, friend...)? What history was obtained from this source @ -No Did you review nursing and triage notes (agree or disagree)? Why? @ -I reviewed and agree with nursing and triage notes Were old charts reviewed (outside hosp., previous admission, EMS record, old EKG, old radiological studies, urgent care reports/EKG's, fci records)? Report findings @ -No old charts were reviewed Differential Diagnosis (chest pain, altered mental status, abdominal pain women, abdominal pain men, vaginal bleeding, weakness, fever, dyspnea, syncope, headache, dizziness, GI bleed, back pain, seizure, CVA, palpatations, mental health, musculoskeletal)? @ -MDM Differential Abdominal Pain Women: Appendicitis, Cholecystitis, diverticulosis, ischemic bowel, pancreatitis, hepat itis, UTI, gastroenteritis, AAA, incarcerated hernia, bowel obstruction, constipation, inflammatory bowel, hepatitis, peptic ulcer disease, splenic infarction, perforated viscus, vulvitis, ovarian torsion, PID, kidney stone, placenta abruption... This is not meant to be an all-inclusive list EKG interpreted by me (3pts min.). @ -As above X-rays interpreted by me (1pt min.). @ -None done CT interpreted by me (1pt min.). @ -CT findings are consistent with acute appendicitis U/S interpreted by me (1pt. min.). @ -None done What testing was considered but not performed or refused? (CT, X-rays, U/S, labs)? Why? @ -None What meds were considered but not given or refused? Why? @ -None Did you discuss the management of the patient with other professionals (professionals i.e. , PA, TEA PLANTATION WORKER, lab, RT, psych nurse, protective services social worker, weasand trimmer, teacher, employment officer, immigration case worker)? Give summary @ -I spoke with Dr. Jensen surgeon at [facility] who accepted transfer Was smoking cessation discussed for >3mins.? @ -No Was critical care preformed (if so, how long)? @ -No Were there social determinants of health that impacted care today? How? (Homelessness, low income, unemployed, alcoholism, drug addiction, transportation, low edu. Level, literacy, decrease access to med. care, alf, rehab)? @ -No Was there de-escalation of care discussed even if they declined (Discuss DNR or withdrawal of care, Hospice)? DNR status @ -No What co-morbidities impacted this encounter? (DM, HTN, Smoking, COPD, CAD, Cancer, CVA, ARF, Chemo, Hep., AIDS, mental health diagnosis, sleep apnea, morbid obesity)? @ -None Was patient admitted / discharged? Hospital course, mention meds given and route, prescriptions, significant lab abnormalities, going to OR and other pertinent info. @ -52-year-old female presenting with chief complaint of right lower quadrant pain nausea and vomiting that started today. History and physical exam were conducted. Patient has point tenderness at McBurney's point. WBC 20. Urine shows no infectious process. CT is consistent with acute appendicitis. 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 I attempted to contact Dr. Bates who declined admission. Patient continues to refuse treatment by her surgeon on-call. [facility] was intact, I spoke with surgeon industrial automation specialist Dr. Jensen who accepted transfer. Patient is agreeable with this plan. She receives 1 g of Rocephin and 500 mg metronidazole[facility] I discussed this case with my attending Dr. Dong Undiagnosed new problem with uncertain prognosis? @ -No Drug Therapy requiring intensive monitoring for toxicity (Heparin, Nitro, Insulin, Cardizem)? @ -No Were any procedures done? @ -No Diagnosis/symptom? @ -Acute appendicitis Acute, or Chronic, or Acute on Chronic? @ -Acute Uncomplicated (without systemic symptoms) or Complicated (systemic symptoms)? @ -Complicated Side effects of treatment? @ -No Exacerbation, Progression, or Severe Exacerbation? @ -No Poses a threat to life or bodily function? How? (Chest pain, USA, MD, pneumonia, PE, COPD, DKA, ARF, appy, cholecystitis, CVA, Diverticulitis, Homicidal, Suicidal, threat to staff... and all critical care pts) @ -yes - Lab Data Result diagrams: 09/30/23 19:17 09/30/23 19:17 Lab Results 09/30/23 09/30/23 09/30/23 Range/Units 19:06 19:17 19:17 WBC 20.0 H (3.8-10.6) k/uL RBC 5.14 (3.80-5.40) m/uL Hgb 14.5 (11.4-16.0) gm/dL Hct 43.0 (34.0-46.0) % MCV 83.8 (80.0-100.0) fL MCH 28.3 (25.0-35.0) pg MCHC 33.8 (31.0-37.0) g/dL RDW 12.9 (11.5-15.5) % Plt Count 415 (150-450) k/uL MPV 6.9 Neutrophils % 83 % Lymphocytes % 11 % Monocytes % 4 % Eosinophils % 1 % Basophils % 0 % Neutrophils # 16.5 H (1.3-7.7) k/uL Lymphocytes # 2.2 (1.0-4.8) k/uL Monocytes # 0.8 (0-1.0) k/uL Eosinophils # 0.3 (0-0.7) k/uL Basophils # 0.1 (0-0.2) k/uL Sodium 142 (137-145) mmol/L Potassium 3.8 (3.5-5.1) mmol/L Chloride 102 (98-107) mmol/L Carbon Dioxide 27 (22-30) mmol/L Anion Gap 13 mmol/L BUN 16 (7-17) mg/dL Creatinine 0.67 (0.52-1.04) mg/dL Est GFR (CKD-EPI)AfAm >90 (>60 ml/min/1.73 sqM) Est GFR (CKD-EPI)NonAf >90 (>60 ml/min/1.73 sqM) Glucose 114 H (74-99) mg/dL Plasma Lactic Acid Chemo (0.7-2.0) mmol/L Calcium 10.7 H (8.4-10.2) mg/dL Total Bilirubin 0.7 (0.2-1.3) mg/dL AST 31 (14-36) U/L ALT 35 H (4-34) U/L Alkaline Phosphatase 63 (38-126) U/L Total Protein 7.8 (6.3-8.2) g/dL Albumin 4.8 (3.5-5.0) g/dL Amylase 68 (30-110) U/L Lipase 137 (23-300) U/L Urine Color Light Yellow Urine Appearance Clear (Clear) Urine pH 7.5 (5.0-8.0) Ur Specific [place] 1.043 H (1.001-1.035) Urine Protein Trace H (Negative) Urine Glucose (UA) 4+ H (Negative) Urine Ketones Trace H (Negative) Urine Blood Negative (Negative) Urine Nitrite Negative (Negative) Urine Bilirubin Negative (Negative) Urine Urobilinogen <2.0 (<2.0) mg/dL Ur Leukocyte Esterase Trace H (Negative) Urine RBC 2 (0-5) /hpf Urine WBC 5 (0-5) /hpf Ur Squamous Epith Cells 1 (0-4) /hpf 09/30/23 Range/Units 19:17 WBC (3.8-10.6) k/uL RBC (3.80-5.40) m/uL Hgb (11.4-16.0) gm/dL Hct (34.0-46.0) % MCV (80.0-100.0) fL MCH (25.0-35.0) pg MCHC (31.0-37.0) g/dL RDW (11.5-15.5) % Plt Count (150-450) k/uL MPV Neutrophils % % Lymphocytes % % Monocytes % % Eosinophils % % Basophils % % Neutrophils # (1.3-7.7) k/uL Lymphocytes # (1.0-4.8) k/uL Monocytes # (0-1.0) k/uL Eosinophils # (0-0.7) k/uL Basophils # (0-0.2) k/uL Sodium (137-145) mmol/L Potassium (3.5-5.1) mmol/L Chloride (98-107) mmol/L Carbon Dioxide (22-30) mmol/L Anion Gap mmol/L BUN (7-17) mg/dL Creatinine (0.52-1.04) mg/dL Est GFR (CKD-EPI)AfAm (>60 ml/min/1.73 sqM) Est GFR (CKD-EPI)NonAf (>60 ml/min/1.73 sqM) Glucose (74-99) mg/dL Plasma Lactic Acid Chemo 1.2 (0.7-2.0) mmol/L Calcium (8.4-10.2) mg/dL Total Bilirubin (0.2-1.3) mg/dL AST (14-36) U/L ALT (4-34) U/L Alkaline Phosphatase (38-126) U/L Total Protein (6.3-8.2) g/dL Albumin (3.5-5.0) g/dL Amylase (30-110) U/L Lipase (23-300) U/L Urine Color Urine Appearance (Clear) Urine pH (5.0-8.0) Ur Specific [place] (1.001-1.035) Urine Protein (Negative) Urine Glucose (UA) (Negative) Urine Ketones (Negative) Urine Blood (Negative) Urine Nitrite (Negative) Urine Bilirubin (Negative) Urine Urobilinogen (<2.0) mg/dL Ur Leukocyte Esterase (Negative) Urine RBC (0-5) /hpf Urine WBC (0-5) /hpf Ur Squamous Epith Cells (0-4) /hpf Disposition Clinical Impression: Acute appendicitis Disposition: OTHER INSTITUTION NOT DEFINED Condition: Stable Referrals: Peter Gallego MD [Primary Care Provider] - 1-2 days - Out of Hospital Transfer - Req. Specs Out of Hospital Transfer - Requested Specifics: Other Emergency Center ([facility])
[2023-09-30 19:39] LABS: Appearance,Urine Clear (Clear); Bilirubin,Urine Negative (Negative); Blood,Urine Negative (Negative); Color,Urine Light Yellow; Glucose,Urine (UA) 4+ (Negative); Ketones,Urine Trace (Negative); Leukocyte Esterase,Urine Trace (Negative); Nitrite,Urine Negative (Negative); PH, Urine 7.5 (5.0-8.0); Protein,Urine Trace (Negative); RBC,Urine 2 /hpf (0-5); Specific Gravity,Urine 1.043 (1.001-1.035); Squamous Epithelial Cell,Urine 1 /hpf (0-4); Urobilinogen,Urine <2.0 mg/dL (<2.0); WBC,Urine 5 /hpf (0-5)
[2023-09-30 19:52] LABS: Basophils # (A) 0.1 k/uL (0-0.2); Basophils % (A) 0 %; Eosinophils # (A) 0.3 k/uL (0-0.7); Eosinophils % (A) 1 %; HGB 14.5 gm/dL (11.4-16.0); Lymphocytes # (A) 2.2 k/uL (1.0-4.8); Lymphocytes % (A) 11 %; MCH 28.3 pg (25.0-35.0); MCHC 33.8 g/dL (31.0-37.0); MCV 83.8 fL (80.0-100.0); Mean Platelet Volume 6.9; Monocytes # (A) 0.8 k/uL (0-1.0); Monocytes % (A) 4 %; Neutrophils # (A) 16.5 k/uL (1.3-7.7); Neutrophils % (A) 83 %; Platelet Count 415 k/uL (150-450); RBC 5.14 m/uL (3.80-5.40); RDW 12.9 % (11.5-15.5)
[2023-09-30 20:43] LABS: ALT 35 U/L (4-34); AST 31 U/L (14-36); African American GFR (CKD) >90 (>60 ml/min/1.73 sqM); Albumin 4.8 g/dL (3.5-5.0); Alkaline Phosphatase 63 U/L (38-126); Amylase 68 U/L (30-110); Anion Gap 13 mmol/L; Blood Urea Nitrogen 16 mg/dL (7-17); Calcium 10.7 mg/dL (8.4-10.2); Carbon Dioxide 27 mmol/L (22-30); Chloride 102 mmol/L (98-107); Glucose 114 mg/dL (74-99); Lipase 137 U/L (23-300); Non-African American GFR(CKD) >90 (>60 ml/min/1.73 sqM); Potassium 3.8 mmol/L (3.5-5.1); Sodium 142 mmol/L (137-145); Total Bilirubin 0.7 mg/dL (0.2-1.3); Total Protein 7.8 g/dL (6.3-8.2)
[2023-09-30] MEDS ORDERED: MORPHINE SULFATE 4 MG/ML SYRINGE IVP STA (21:12)
--- NOTE | 2023-09-30 21:15 | CT ---
EXAMINATION TYPE: CT abdomen pelvis w con DATE OF EXAM: 09/30/2023 COMPARISON: 08/20/2021 HISTORY: Pt was found outside in a snow bank. Pt was taken into his house by bystanders who said his home was [address] DLP: 1224.6 mGycm Automated exposure control for dose reduction was used. TECHNIQUE: Helical acquisition of images was performed from the lung bases through the pelvis. CONTRAST: Performed without Oral Contrast and with IV Contrast, patient injected with 100ml mL of Isovue 300. FINDINGS: The lung bases are clear. There are surgical absence of the gallbladder. There is no biliary ductal dilatation. There is no focal mass or organomegaly involving the liver, pancreas, spleen or adrenal glands. There is no solid renal mass or hydronephrosis. There is no retroperitoneal adenopathy or hemorrhage in the caliber the abdominal aorta is normal. The appendix is markedly enlarged. There is appendiceal wall thickening and moderate periappendiceal fat infiltration. The findings are consistent with acute appendicitis without abscess, bowel obstruct ion, free intraperitoneal air or fluid. The bowel loops are otherwise normal in caliber. There is no pelvic mass or adenopathy. The osseous structures are intact. IMPRESSION: Findings consistent with acute appendicitis.
[2023-09-30] MEDS ORDERED: cefTRIAXone IN SWFI 1,000 MG/10 ML SYRINGE IVP STA (21:52)
[2023-09-30] MEDS ORDERED: metroNIDAZOLE-NS PMX 500 MG in SALINE 1 100ML.BAG IVPB STA (21:52)
[2023-09-30 22:08] VITALS: RESP 20; TEMP 98.4
[2023-09-30] MEDS ORDERED: HYDROmorphone 1 MG/ML 1 ML SYRINGE IVP STA (22:15)
[2023-09-30 23:52] VITALS: BP 135/77; PULSE 96
== END 2023-10-01 00:08 | disposition other institution (70) ==
LOC: EC 18:40
DX: K35.80 Unspecified acute appendicitis (principal); E11.9 Type 2 diabetes mellitus without complications; E78.5 Hyperlipidemia, unspecified; I10 Essential (primary) hypertension; J45.909 Unspecified asthma, uncomplicated; Z79.4 Long term (current) use of insulin; Z79.84 Long term (current) use of oral hypoglycemic drugs; Z79.899 Other long term (current) drug therapy; Z79.82 Long term (current) use of aspirin; Z88.8 Allergy status to other drugs, medicaments and biological substances; Z91.041 Radiographic dye allergy status
CPT/HCPCS: 36415; 80053; 82150; 83605; 83690; 85025; 81001; 87040; 74177; 99285; 96365; 96375 ×7; J2270; J1200; J2930; J2405; J0696; J3490; J1170; Q9967; J1836

== ENCOUNTER → 2023-12-26 | Outpatient (CLI) | payer MEDICAID ==
--- NOTE | 2023-12-29 11:00 | MM ---
Reason for Exam: Screening (asymptomatic). Last screening mammogram was performed 12 month(s) ago. Patient History: Menarche at age 12. First Full-Term at age 28. Postmenopausal. 06/21/2011, Benign Core Biopsy on the right side. Paternal grandmother had breast cancer, age 82. Risk Values: Maia 5 year model risk: 1.4%. NCI Lifetime model risk: 11.0%. Prior Study Comparison: 11/13/2020 Bilateral Screening Mammogram, [facility]. 12/14/2021 Bilateral Diagnostic Mammogram, [facility]. 12/18/2022 Bilateral MG 3D screening mammo w/cad, [facility]. Tissue Density: There are scattered areas of fibroglandular density. Findings: Analyzed By CAD. Right breast: There is no suspicious group of microcalcifications or new suspicious mass. Left breast: There is no suspicious group of microcalcifications or new suspicious mass. Overall Assessment: Negative, BI-RAD 1 Management: Screening Mammogram of both breasts in [address] [facility] will attempt to contact patient to return for supplemental views and ultrasound if indicated. Patient should continue monthly self-breast exams. A clinical breast exam by your physician is recommended on an annual basis. This exam should not preclude additional follow-up of suspicious palpable abnormalities. Note on Maia scores and lifetime risk: 1. A Maia score greater than 3% is considered moderate risk. If this is the case, consider specialist referral to assess eligibility for a risk reducing agent. 2. If overall lifetime risk for the development of breast cancer is 20% or higher, the patient may qualify for future screening with alternating mammogram and breast MRI. Electronically signed and approved by: Shemar Montero DO
== END | disposition home or self-care (01) ==
LOC: RADMAMWWP 11:26
PROVIDERS: ATTEND Internal Medicine Geriatric Medicine
DX: Z12.31 Encounter for screening mammogram for malignant neoplasm of breast (principal); Z80.3 Family history of malignant neoplasm of breast; Z78.0 Asymptomatic menopausal state
CPT/HCPCS: 77063; 77067

== ENCOUNTER → 2024-01-21 | Outpatient (CLI) | payer MEDICAID ==
[2024-01-21 15:28] LABS: Bacteria,Urine 1+ (None Seen)
[2024-01-21 15:46] LABS: ALT 30 U/L (8-44); AST 27 U/L (13-35); Albumin 4.6 g/dL (3.8-4.9); Albumin/Globulin Ratio 1.77 Ratio (1.60-3.17); Alkaline Phosphatase 64 U/L (41-126); BUN/Creat Ratio 21.57 Ratio (12.00-20.00); Blood Urea Nitrogen 15.1 mg/dL (9.0-27.0); Carbon Dioxide 25.1 mmol/L (21.6-31.8); Chloride 102 mmol/L (96-109); Chol/HDL Ratio 4.51 Ratio; Globulin 2.6 g/dL (1.6-3.3); Glucose 109 mg/dL (70-110); LDL Cholesterol,Calculated 87.1 mg/dL (0.0-131.0); Potassium 3.7 mmol/L (3.5-5.5); Sodium 141 mmol/L (135-145); T4, Free (Free Thyroxine) 1.48 ng/dL (0.80-1.80); Total Bilirubin 0.2 mg/dL (0.3-1.2); Total Protein 7.2 g/dL (6.2-8.2)
[2024-01-21 16:14] LABS: Basophils # (A) 0.07 X 10*3/uL (0.00-0.10); Basophils % (A) 0.7 %; Eosinophils # (A) 0.27 X 10*3/uL (0.04-0.35); Eosinophils % (A) 2.7 %; HCT 41.8 % (37.2-46.3); HGB 13.4 g/dL (12.0-15.0); Lymphocytes # (A) 2.72 X 10*3/uL (0.90-5.00); Lymphocytes % (A) 27.3 %; MCH 27.2 pg (27.0-32.0); MCHC 32.1 g/dL (32.0-37.0); MCV 84.8 FL (80.0-97.0); Mean Platelet Volume 9.6 FL (9.5-12.2); Monocytes # (A) 0.85 X 10*3/uL (0.20-1.00); Monocytes % (A) 8.5 %; NRBC Per 100 WBC 0 X 10*3/uL (0.00-0.01); Neutrophils # (A) 6.03 X 10*3/uL (1.80-7.70); Neutrophils % (A) 60.4 %; Platelet Count 371 X 10*3/uL (140-440); RBC 4.93 X 10*6/uL (4.10-5.20); RDW 13.2 % (11.5-14.5); WBC 9.98 X 10*3/uL (4.50-10.00)
[2024-01-21 16:16] LABS: Appearance,Urine Clear (Clear); Bilirubin,Urine Negative (Negative); Blood,Urine Negative (Negative); Color,Urine Yellow (Yellow); Ketones,Urine Trace (Negative); Nitrite,Urine Negative (Negative); PH, Urine 5.5; Specific Gravity,Urine >1.035 (1.001-1.030); Urobilinogen,Urine 0.2
[2024-01-21 22:54] LABS: Microalbumin Creatinine Ratio <11 mg/g Cr (0-30)
== END | disposition home or self-care (01) ==
LOC: LABWHC1 11:17
PROVIDERS: ATTEND Nurse Practitioner Family
DX: Z00.00 Encounter for general adult medical examination without abnormal findings (principal); E11.65 Type 2 diabetes mellitus with hyperglycemia; E03.9 Hypothyroidism, unspecified
CPT/HCPCS: 36415; 80053; 80061; 81001; 82043; 82570; 83036; 84439; 84443; 85025; 87086

== ENCOUNTER → 2024-04-22 | Outpatient (CLI) | payer MEDICAID | END | disposition home or self-care (01) | LOC: LABPRL 10:30 | PROVIDERS: ATTEND Nurse Practitioner Family | DX: E11.65 Type 2 diabetes mellitus with hyperglycemia | CPT/HCPCS: 80053; 80061; 82306; 83036; 84443; 85025; 87070 ==

== ENCOUNTER → 2024-04-22 | Outpatient (CLI) | payer MEDICAID | END | disposition home or self-care (01) | LOC: LABWHC1 14:09 | PROVIDERS: ATTEND Nurse Practitioner Family | DX: E03.9 Hypothyroidism, unspecified (principal); E11.65 Type 2 diabetes mellitus with hyperglycemia; R23.3 Spontaneous ecchymoses; R30.0 Dysuria; M21.612 Bunion of left foot; M65.879 Other synovitis and tenosynovitis, unspecified ankle and foot; Z22.322 Carrier or suspected carrier of Methicillin resistant Staphylococcus aureus | CPT/HCPCS: 85610; 85730 ==

== ENCOUNTER → 2024-09-24 | Outpatient (CLI) | payer MEDICAID ==
[2024-09-24 22:22] LABS: Basophils # (A) 0.08 X 10*3/uL (0.00-0.10); Basophils % (A) 0.9 %; Eosinophils # (A) 0.18 X 10*3/uL (0.04-0.35); Eosinophils % (A) 2.1 %; HCT 44.3 % (37.2-46.3); Lymphocytes # (A) 2.48 X 10*3/uL (0.90-5.00); Lymphocytes % (A) 29.1 %; MCH 27.5 pg (27.0-32.0); MCHC 31.6 g/dL (32.0-37.0); MCV 86.9 FL (80.0-97.0); Mean Platelet Volume 9.5 FL (9.5-12.2); Monocytes # (A) 0.64 X 10*3/uL (0.20-1.00); Monocytes % (A) 7.5 %; NRBC Per 100 WBC 0 X 10*3/uL (0.00-0.01); Neutrophils # (A) 5.09 X 10*3/uL (1.80-7.70); Neutrophils % (A) 59.9 %; Platelet Count 384 X 10*3/uL (140-440); RDW 12.7 % (11.5-14.5); WBC 8.51 X 10*3/uL (4.50-10.00)
[2024-09-24 22:56] LABS: ALT 44 U/L (8-44); AST 34 U/L (13-35); Albumin 4.8 g/dL (3.8-4.9); Albumin/Globulin Ratio 1.78 Ratio (1.60-3.17); Alkaline Phosphatase 55 U/L (41-126); BUN/Creat Ratio 23.57 Ratio (12.00-20.00); Blood Urea Nitrogen 16.5 mg/dL (9.0-27.0); Calcium 10.2 mg/dL (8.7-10.3); Carbon Dioxide 25.4 mmol/L (21.6-31.8); Chloride 100 mmol/L (96-109); Chol/HDL Ratio 4.03 Ratio; Globulin 2.7 g/dL (1.6-3.3); Glucose 139 mg/dL (70-110); LDL Cholesterol,Calculated 70.5 mg/dL (0.0-131.0); Potassium 4.1 mmol/L (3.5-5.5); Sodium 141 mmol/L (135-145); Total Bilirubin 0.3 mg/dL (0.3-1.2); Total Protein 7.5 g/dL (6.2-8.2)
== END | disposition home or self-care (01) ==
LOC: LABWHC1 13:41
PROVIDERS: ATTEND Internal Medicine Geriatric Medicine
DX: I47.10 Supraventricular tachycardia, unspecified (principal); E11.65 Type 2 diabetes mellitus with hyperglycemia; E78.00 Pure hypercholesterolemia, unspecified; E53.8 Deficiency of other specified B group vitamins; E55.9 Vitamin D deficiency, unspecified; Z91.09 Other allergy status, other than to drugs and biological substances; Z88.8 Allergy status to other drugs, medicaments and biological substances
CPT/HCPCS: 36415; 80053; 80061; 82043; 82306; 82570; 82607; 83036; 84443; 85025

== ENCOUNTER → 2024-11-30 | Outpatient (CLI) | payer MEDICAID ==
--- NOTE | 2024-12-07 23:22 | P.PCN ---
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 The patient is concerned of sleep apnea. 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 She also lost her for complications of dissecting aortic aneurysm and she is somewhat depressed which further affected her ability to initiate and maintain sleep. She has been recently seen by her primary care physician and the patient was started on trazodone 50 mg and she is supposed to take this at bedtime. Nevertheless, her sleep schedule is quite disturbed. She goes to bed at around 11 PM. Nevertheless, he is having difficulties initiating sleep and she is falling asleep late sometimes between 2 and 3 AM in the morning. 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 Moreover, she has undergone a complicated left foot surgery. She started by having a bunion and after having 2 surgeries locally, she had no success and she ultimately had to undergo a total ORIF. Her functionality and ability to walk has improved since. No active pain for now. With all those comorbidities, the patient has lost weight. The patient is currently down to 203 pounds and she has lost approximately 25 pounds. She has been noted to snore and she has also been noted to stop breathing and this has been told to her by healthcare professionals due to care of her following her foot surgery. Based on that, the patient is coming into have a screening evaluation for obstructive sleep apnea. She is chronically tired and fatigued specially with her ongoing sleep disturbance. No grinding. No nocturia. No sleepwalking. No sleep talking. No nocturnal chest pain or heartburn or palpitations. No history of any motor vehicle accidents because of feeling drowsy or sleepy. No substance abuse. Her comorbidities are multiple including hypertension, hyperlipidemia, bronchial asthma, migraines and glaucoma. She has also had previous history of SVT and current cardiac rhythm is sinus. She is diabetic. Pertinent physical findings Weight is 198 pounds and BMI is 32.7 Technical description The [employer] system was used to complete his home sleep study. This is a type III home sleep study evaluation. The total recording duration was 8 hours and 31 minutes. The study started at 9:15 PM and ended at 5:47 AM. There was a total of 8 hours and 20 minutes of flow monitoring and a total of 8 hours and 13 minutes of oxygen saturation monitoring. Results Respiratory analysis showed a total of 0 obstructive apneas and a total of 117 obstructive hypopneas. The resulting AHI was 14. This is consistent with mild KAREN. Oxygenation analysis Average pulse ox during sleep was 92%. Minimum pulse ox was 75% and the patient spent approximately 41 minutes of the sleep time below pulse ox of 89% Cardiac summary Average heart rate was 78 with a minimum heart rate 47 and a maximum heart rate of 225. Assessment Obstructive sleep apnea, mild in severity with an AHI of 14. Mild nocturnal oxygen desaturation with a minimum pulse ox of 75%. In addition, the patient spent approximately 41 minutes of sleep time below pulse ox of 89% Chronic hypersomnia, multifactorial. This is part related to her obstructive sleep apnea. 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 She does have ongoing difficulties with sleep initiation and maintenance in addition to sleep fragmentation. She has a component of depression and recently she was started on trazodone 50 mg to be taken at bedtime. She has undergone a surgery on her mobility. Obesity with a body mass index is down to 32.7. Patient is losing weight Depression, started on trazodone 50 mg at bedtime History of SVT, current cardiac rhythm is sinus Diabetes mellitus type 2 History of left foot bunion with multiple orthopedic surgeries. The most recent surgery was performed on 07/08/2024 requiring based on ostectomy with MTP fusion. Bronchial asthma currently inactive and stable Migraines Glucoma History of ovarian cyst with previous history of a ruptured hemorrhagic cyst Endometriosis Hypertension Hyperlipidemia Plan Will encourage weight loss Chronic fatigue and sleepiness is multifactorial. Sleep apnea is contributing to her problems. Nevertheless, treating her obstructive sleep apnea may not give her full relief as there are other factors contributing to her chronic fatigue and sleepiness as stated. I discussed with the patient the importance of maintaining a regular sleep schedule. Will try to restrict the number of hours in bed and try to wake up early in the morning and get out of bed at around 6 AM. This should help in establishing a sleep inertia and the patient will avoid taking any naps during the day. She was taking her trazodone at around 10 PM every night. She has taken melatonin in the past with no success and I advised to stop the melatonin. Will advise daytime light stimulation and intake of some caffeinated beverages to increase her morning level of alertness. M she aintain good sleep hygiene measures The need for CPAP therapy versus an oral appliance will be discussed with the patient and final decision will be made accordingly.
== END ==
LOC: 3 N SLEEP 16:54
PROVIDERS: ATTEND Internal Medicine Critical Care Medicine
DX: G47.33 Obstructive sleep apnea (adult) (pediatric) (principal); I10 Essential (primary) hypertension; F32.A Depression, unspecified; J45.909 Unspecified asthma, uncomplicated; E11.9 Type 2 diabetes mellitus without complications; G43.909 Migraine, unspecified, not intractable, without status migrainosus; E78.5 Hyperlipidemia, unspecified; N80.9 Endometriosis, unspecified; E66.9 Obesity, unspecified; Z68.32 Body mass index [BMI] 32.0-32.9, adult; Z86.79 Personal history of other diseases of the circulatory system; Z91.041 Radiographic dye allergy status; Z91.048 Other nonmedicinal substance allergy status; Z88.8 Allergy status to other drugs, medicaments and biological substances; Z87.39 Personal history of other diseases of the musculoskeletal system and connective tissue; Z98.890 Other specified postprocedural states

== ENCOUNTER → 2025-01-21 | Outpatient (CLI) | payer MEDICAID ==
[2025-01-21 15:47] LABS: Basophils # (A) 0.07 X 10*3/uL (0.00-0.10); Basophils % (A) 0.9 %; Eosinophils % (A) 2.5 %; HCT 43.1 % (37.2-46.3); HGB 13.9 g/dL (12.0-15.0); Lymphocytes % (A) 28.3 %; MCHC 32.3 g/dL (32.0-37.0); MCV 86.7 FL (80.0-97.0); Mean Platelet Volume 9.4 FL (9.5-12.2); Monocytes # (A) 0.75 X 10*3/uL (0.20-1.00); Monocytes % (A) 9.2 %; NRBC Per 100 WBC 0 X 10*3/uL (0.00-0.01); Neutrophils # (A) 4.78 X 10*3/uL (1.80-7.70); Neutrophils % (A) 58.6 %; Platelet Count 371 X 10*3/uL (140-440); RBC 4.97 X 10*6/uL (4.10-5.20); RDW 12.7 % (11.5-14.5); WBC 8.14 X 10*3/uL (4.50-10.00)
[2025-01-21 17:17] LABS: ALT 36 U/L (8-44); AST 28 U/L (13-35); Albumin 4.5 g/dL (3.8-4.9); Albumin/Globulin Ratio 1.55 Ratio (1.60-3.17); Alkaline Phosphatase 63 U/L (41-126); BUN/Creat Ratio 21.12 Ratio (12.00-20.00); Blood Urea Nitrogen 16.9 mg/dL (9.0-27.0); Calcium 10.5 mg/dL (8.7-10.3); Carbon Dioxide 25.9 mmol/L (21.6-31.8); Chloride 102 mmol/L (96-109); Chol/HDL Ratio 4.42 Ratio; Globulin 2.9 g/dL (1.6-3.3); Glucose 143 mg/dL (70-110); LDL Cholesterol,Calculated 86.2 mg/dL (0.0-131.0); Potassium 4.3 mmol/L (3.5-5.5); Sodium 142 mmol/L (135-145); T4, Free (Free Thyroxine) 1.28 ng/dL (0.80-1.80); Total Bilirubin 0.2 mg/dL (0.3-1.2); Total Protein 7.4 g/dL (6.2-8.2)
[2025-01-21 17:56] LABS: Microalbumin Creatinine Ratio <10 mg/g Cr (0-30)
== END | disposition home or self-care (01) ==
LOC: LABWHC1 10:51
PROVIDERS: ATTEND Nurse Practitioner Family
DX: Z00.00 Encounter for general adult medical examination without abnormal findings (principal); E11.65 Type 2 diabetes mellitus with hyperglycemia; E78.2 Mixed hyperlipidemia; E03.9 Hypothyroidism, unspecified; E55.9 Vitamin D deficiency, unspecified
CPT/HCPCS: 36415; 80053; 80061; 82043; 82306; 82570; 83036; 84439; 84443; 85025

== ENCOUNTER → 2025-01-27 | Outpatient (CLI) | payer MEDICAID ==
--- NOTE | 2025-01-27 08:36 | MM ---
Reason for Exam: Screening (asymptomatic). Last mammogram was performed 1 year(s) and 1 month(s) ago. Patient History: Menarche at age 12. First Full-Term at age 28. Postmenopausal. Hormonal Contraceptives for 4 years from age 24 until age 28. 06/21/2011, Benign Core Biopsy on the right side. Paternal grandmother had breast cancer, age 82. Risk Values: Maia 5 year model risk: 1.5%. NCI Lifetime model risk: 10.8%. Prior Study Comparison: 12/14/2021 Bilateral Diagnostic Mammogram, [facility]. 12/18/2022 Bilateral MG 3D screening mammo w/cad, [facility]. 12/26/2023 Bilateral MG 3D screening mammo w/cad, [facility]. Tissue Density: The breasts are heterogeneously dense, which may obscure small masses. Findings: Analyzed By CAD. There is a mammotome biopsy clip in the right breast redemonstrated. Prominent but benign-appearing right axillary lymph nodes are again seen similar to 2120 mammogram. There is no suspicious group of microcalcifications or new suspicious mass in either breast. Overall Assessment: Negative, BI-RAD 1 Management: Screening Mammogram of both breasts in 1 year. . Patient should continue monthly self-breast exams. A clinical breast exam by your physician is recommended on an annual basis. This exam should not preclude additional follow-up of suspicious palpable abnormalities. Note on Maia scores and lifetime risk: 1. A Maia score greater than 3% is considered moderate risk. If this is the case, consider specialist referral to assess eligibility for a risk reducing agent. 2. If overall lifetime risk for the development of breast cancer is 20% or higher, the patient may qualify for future screening with alternating mammogram and breast MRI. [facility], , 01/27/2025 7:45 AM. Electronically signed and approved by: Patrick Frost M.D.
== END | disposition home or self-care (01) ==
LOC: RADMAMWWP 01-25 07:15
PROVIDERS: ATTEND Internal Medicine Geriatric Medicine
DX: Z12.31 Encounter for screening mammogram for malignant neoplasm of breast (principal); R92.333 Mammographic heterogeneous density, bilateral breasts; Z78.0 Asymptomatic menopausal state; Z92.0 Personal history of contraception; Z80.3 Family history of malignant neoplasm of breast
CPT/HCPCS: 77063; 77067